=== PATIENT | male | born 1940 | race Caucasian/White ===

== ENCOUNTER 2016-11-08 03:15 | Observation (INO) | payer MEDICARE, OTHER ==
[2016-11-08] MEDS ORDERED: Aspirin 81 MG Tab.Chew PO ONE (03:25)
[2016-11-08] MEDS ORDERED: Sodium Chloride 0.9% 10 ML Syringe FLUSH PRN (03:26)
--- NOTE | 2016-11-08 03:31 | EDM.PDOC ---
ED HPI GENERAL MEDICAL PROBLEM - General Chief Complaint: Chest Pain Stated Complaint: Chest pressure, SOB Time Seen by Provider: 11/08/16 03:24 Source of Information: Reports: Patient, RN, RN Notes Reviewed History Limitations: Reports: No Limitations - History of Present Illness INITIAL COMMENTS - FREE TEXT/NARRATIVE: Patient presents to the ED at [facility] complaining of chest pressure. Patient states the pain started about 2 hours ago. Patient states his pain is worse when he lays down. Patient has a history of CABG, stents, and s/p pacer. Patient states he also feels somewhat SOB. No cough. Patient denies any N/V/D. No focal neurological deficits. 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 Onset: Today Onset Date: 11/08/16 Onset Time: 01:00 Duration: Waxing/Waning Location: Reports: Chest Quality: Reports: Pressure mid sternal chest Pain Score (Numeric/FACES): 2 - Related Data Allergies Allergy/AdvReac Type Severity Reaction Status Date / Time atorvastatin calcium Allergy Unknown Hives Verified 11/08/16 03:36 [From Lipitor] cephalexin monohydrate Allergy Unknown Cannot Verified 11/08/16 03:36 [From Keflex] Remember colesevelam HCl Allergy Unknown Cannot Verified 11/08/16 03:36 [From WelChol] Remember erythromycin base Allergy Unknown Cannot Verified 11/08/16 03:36 [Erythromycin Base] Remember gemfibrozil [From Lopid] Allergy Unknown Cannot Verified 11/08/16 03:36 Remember lisinopril Allergy Unknown Cannot Verified 11/08/16 03:36 Remember midazolam HCl [From Versed] AdvReac Unknown Change Verified 11/08/16 03:36 Mental Status Home Meds: Home Meds Aspirin [Halfprin] 81 mg PO DAILY 04/05/13 [History] Calcium Carbonate/Vitamin D3 [Calcium 600 + Vit D Tablet] 1 tab PO DAILY [History] Cholecalciferol (Vitamin D3) [Vitamin D3] 1 tab PO DAILY 04/05/13 [History] Cholestyramine (With Sugar) [Questran Powder] 4 gm PO DAILY 04/05/13 [History] Citric Acid/Potassium Citrate [Polycitra-K] 4 tbsp PO BID 04/05/13 [History] Cyanocobalamin (Vitamin B-12) [Vitamin B-12] 1 tab PO DAILY 04/05/13 [History] Cyclobenzaprine [Flexeril] 10 mg PO BEDTIME PRN 04/05/13 [History] Ferrous Sulfate 1 tab PO BID 04/05/13 [History] Furosemide [Lasix] 1 tab PO DAILY 04/05/13 [History] Gluc 2KCl/Chondr/Lissy Hy/Hy Ac [Glucosamine & Chondroitin Cap] 1 cap PO BID [History] Hydrocortisone Butyrate [Locoid 0.1% Crm] 1 dose TOP ASDIRECTED PRN 04/05/13 [ History] Metoprolol Tartrate 12.5 mg PO DAILY 04/05/13 [History] Multivitamin with Minerals [Multiple Vitamin] 1 tab PO DAILY 04/05/13 [History] Nitroglycerin [Nitrostat] 1 tab SL ASDIRECTED PRN 04/05/13 [History] Pantoprazole [ProTONIX] 40 mg PO DAILY 04/05/13 [History] Penicillin V Potassium 250 mg PO DAILY 04/05/13 [History] Pravastatin [Pravachol] 10 mg PO BEDTIME 04/05/13 [History] Allopurinol [Zyloprim] 100 mg PO DAILY 11/08/16 [History] Furosemide [Furosemide] 20 mg PO DAILY 11/08/16 [History] Past Medical History HEENT History: Reports: Cataract Other HEENT History: . Cardiovascular History: Reports: High Cholesterol, Hypertension Other Cardiovascular History: CABG and stents Other Respiratory History: tried CPAP and was unable to use Other Gastrointestinal History: ostomy in place Other Genitourinary History: . Musculoskeletal History: Reports: Arthritis Other Musculoskeletal History: . Hematologic History: Reports: Anemia, Other (See Below) Other Hematologic History: hx of low platelets. Immunologic History: 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 Oncologic (Cancer) History: Reports: Basal Cell Carcinoma - Past Surgical History Male Surgical History: Reports: Other (See Below) Musculoskeletal Surgical History: Reports: Arthroscopic Procedure Social & Family History - Tobacco Use Smoking Status *Q: Never Smoker Second Hand Smoke Exposure: No - Alcohol Use Days Per Week of Alcohol Use: 0 - Recreational Drug Use Recreational Drug Use: No ED ROS GENERAL - Review of Systems Review Of Systems: See Below Constitutional: Denies: Fever, Chills, Weakness Respiratory: Reports: Shortness of Breath. Denies: Cough, Sputum Cardiovascular: Reports: Chest Pain. Denies: Palpitations GI/Abdominal: Denies: Abdominal Pain, Nausea, Vomiting Skin: Reports: No Symptoms Neurological: Reports: No Symptoms. Denies: Dizziness, Headache ED EXAM, GENERAL - Physical Exam Exam: See Below Exam Limited By: No Limitations General Appearance: Alert, No Apparent Distress Respiratory/Chest: No Respiratory Distress, Lungs Clear, Normal Breath Sounds Cardiovascular: Normal Peripheral Pulses, Regular Rate, Rhythm, No Edema Peripheral Pulses: 2+: Radial (L), Radial (R) GI/Abdominal: Normal Bowel Sounds, Soft, Non-Tender Neurological: Alert, Oriented Skin Exam: Warm, Dry, Intact, Normal Color, No Rash Course - Vital Signs Last Recorded V/S: Last Vital Signs Temp 36.8 C 11/08/16 03:15 Pulse 73 11/08/16 04:35 Resp 16 11/08/16 04:35 BP 137/67 11/08/16 04:35 Pulse Ox 97 11/08/16 04:35 - Orders/Labs/Meds Orders: Active Orders 24 hr Category Date Time Status Admission Status [Patient Status] [ADT] Routine ADT 11/08/16 04:47 Ordered EKG 12 Lead [EKG Documentation Completion] [RC] STAT Care 11/08/16 03:25 Active Chest 2V [CR] Stat Exams 11/08/16 03:25 Taken Sodium Chloride 0.9% [Saline Flush] Med 11/08/16 03:26 Active 10 ml FLUSH ASDIRECTED PRN Peripheral IV Insertion Adult [OM.PC] Routine Oth 11/08/16 03:26 Ordered Medication Orders Sodium Chloride (Saline Flush) 10 ml FLUSH ASDIRECTED PRN PRN Reason: Keep Vein Open Labs: Laboratory Tests 11/08/16 11/08/16 11/08/16 Range/Units 03:49 03:49 03:49 WBC 6.7 (4.0-10.0) x10^3/uL RBC 3.02 L (4.5-6.0) x10^6/uL Hgb 9.0 L (14.0-18.0) g/dL Hct 30.7 L (40.0-52.0) % MCV 101.7 H (78.0-93.0) fL MCH 29.8 (26.0-32.0) pg MCHC 29.3 L (32.0-36.0) g/dL RDW Coeff of Diana 13.9 (10.0-15.0) % Plt Count 2 L* D (130-400) x10^3/uL Add Manual Diff Yes Neutrophils % (Manual) 54 (50-80) % Band Neutrophils % 1 (0-6) % Lymphocytes % (Manual) 21 L (25-50) % Monocytes % (Manual) 15 H (2-11) % Eosinophils % (Manual) 9 H (0-4) % Platelet Estimate Marked dec L Giant Platelets Moderate H Plt Morphology Comment See note Polychromasia Rare Anisocytosis 1+ slight H Macrocytosis 1+ slight H Spherocytes 1+ slight H Schistocytes Rare Sodium 142 (136-145) mmol/L Potassium 4.1 (3.5-5.1) mmol/L Chloride 108 H (98-107) mmol/L Carbon Dioxide 23 (21-32) mmol/L BUN 41 H (7-18) mg/dL Creatinine 2.1 H (0.70-1.30) mg/dL Est Cr Clr Drug Dosing TNP Estimated GFR (MDRD) 31 Glucose 79 (74-106) mg/dL Calcium 8.3 L (8.5-10.1) mg/dL Creatine Kinase 87 (39-308) U/L Creatine Kinase Index 4.4 H (0.0-4.0) % CK-MB (CK-2) 3.8 H (0.0-3.6) ng/mL POC Troponin I (0.00-0.08) ng/mL B-Natriuretic Peptide 2000 H (<=450) pg/mL POC Result Comm 11/08/16 Range/Units 03:53 WBC (4.0-10.0) x10^3/uL RBC (4.5-6.0) x10^6/uL Hgb (14.0-18.0) g/dL Hct (40.0-52.0) % MCV (78.0-93.0) fL MCH (26.0-32.0) pg MCHC (32.0-36.0) g/dL RDW Coeff of Diana (10.0-15.0) % Plt Count (130-400) x10^3/uL Add Manual Diff Neutrophils % (Manual) (50-80) % Band Neutrophils % (0-6) % Lymphocytes % (Manual) (25-50) % Monocytes % (Manual) (2-11) % Eosinophils % (Manual) (0-4) % Platelet Estimate Giant Platelets Plt Morphology Comment Polychromasia Anisocytosis Macrocytosis Spherocytes Schistocytes Sodium (136-145) mmol/L Potassium (3.5-5.1) mmol/L Chloride (98-107) mmol/L Carbon Dioxide (21-32) mmol/L BUN (7-18) mg/dL Creatinine (0.70-1.30) mg/dL Est Cr Clr Drug Dosing Estimated GFR (MDRD) Glucose (74-106) mg/dL Calcium (8.5-10.1) mg/dL Creatine Kinase (39-308) U/L Creatine Kinase Index (0.0-4.0) % CK-MB (CK-2) (0.0-3.6) ng/mL POC Troponin I 0.12 H* (0.00-0.08) ng/mL B-Natriuretic Peptide (<=450) pg/mL POC Result Comm Called critical res Meds: Medications Generic Name Dose Route Start Last Admin Trade Name Freq PRN Reason Stop Dose Admin Sodium Chloride 10 ml 11/08/16 03:26 Saline Flush FLUSH ASDIRECTED PRN Keep Vein Open Discontinued Medications Generic Name Dose Route Start Last Admin Trade Name Freq PRN Reason Stop Dose Admin Aspirin 324 mg 11/08/16 03:25 11/08/16 03:28 Aspirin PO 11/08/16 03:26 324 mg ONETIME ONE Administration Departure - Departure Time of Disposition: 04:49 Disposition: Refer to Observation Condition: Good Clinical Impression: Congestive heart failure, Elevated troponin, CAD (coronary artery disease), Anemia - Problem List & Annotations (1) Congestive heart failure SNOMED Code(s): 66212196 Code(s): I50.9 - HEART FAILURE, UNSPECIFIED Status: Acute Current Visit: Yes Qualifiers: Congestive heart failure type: unspecified congestive heart failure type Congestive heart failure chronicity: unspecified congestive heart failure chronicity Qualified Code(s): I50.9 - Heart failure, unspecified (2) Elevated troponin SNOMED Code(s): 072376746, 695144437 Code(s): R74.8 - ABNORMAL LEVELS OF OTHER SERUM ENZYMES Status: Acute Current Visit: Yes (3) CAD (coronary artery disease) SNOMED Code(s): 71045363 Code(s): I25.10 - ATHSCL HEART DISEASE OF [place] CORONARY ARTERY W/O ANG PCTRS Status: Acute Current Visit: No Qualifiers: Coronary Disease-Associated Artery/Lesion type: bypass graft, other Associated angina: without angina Qualified Code(s): I25.810 - Atherosclerosis of coronary artery bypass graft(s) without angina pectoris (4) Anemia SNOMED Code(s): 710568880 Code(s): D64.9 - ANEMIA, UNSPECIFIED Status: Acute Current Visit: No Qualifiers: Chronic kidney disease stage: stage 3 (moderate) - Problem List Review Problem List Initiated/Reviewed/Updated: Yes - My Orders Last 24 Hours: My Active Orders 11/08/16 03:25 EKG 12 Lead [EKG Documentation Completion] [RC] STAT Chest 2V [CR] Stat 11/08/16 03:26 Sodium Chloride 0.9% [Saline Flush] 10 ml FLUSH ASDIRECTED PRN Peripheral IV Insertion Adult [OM.PC] Routine 11/08/16 04:47 Admission Status [Patient Status] [ADT] Routine - Assessment/Plan Admission H&P: Please use this note as an admission H&P Last 24 Hours: My Active Orders 11/08/16 03:25 EKG 12 Lead [EKG Documentation Completion] [RC] STAT Chest 2V [CR] Stat 11/08/16 03:26 Sodium Chloride 0.9% [Saline Flush] 10 ml FLUSH ASDIRECTED PRN Peripheral IV Insertion Adult [OM.PC] Routine 11/08/16 04:47 Admission Status [Patient Status] [ADT] Routine
[2016-11-08 04:25] LABS: CHLORIDE,CL 108 mmol/L (98-107); SODIUM,NA 142 mmol/L (136-145)
[2016-11-08] MEDS ORDERED: Morphine 2 MG/ML Syringe IVPUSH PRN (05:09)
[2016-11-08] MEDS ORDERED: Acetaminophen 325 MG Tab PO PRN (05:09)
[2016-11-08] MEDS ORDERED: Furosemide 20 MG/2 ML VIAL IV ONE (05:14)
[2016-11-08] MEDS ORDERED: Nitroglycerin 0.4 MG Tab.SL SL PRN (05:14)
[2016-11-08] MEDS ORDERED: Pantoprazole 40 MG Tab.CR PO SCH (07:00)
[2016-11-08] MEDS ORDERED: POTASSIUM CITRATE PO SCH (08:00)
[2016-11-08] MEDS ORDERED: Allopurinol 100 MG Tab PO SCH (08:00)
[2016-11-08] MEDS ORDERED: CITRIC ACID PO SCH (08:00)
[2016-11-08] MEDS ORDERED: Metoprolol Tartrate 25 MG Tab PO SCH (08:00)
[2016-11-08] MEDS ORDERED: Ferrous Sulfate 325 MG Tab PO SCH (08:00)
[2016-11-08] MEDS ORDERED: Cholestyramine/Aspartame Powder 4 GM Packet PO SCH (08:00)
[2016-11-08 09:48] VITALS: BP 156/70
--- NOTE | 2016-11-08 09:57 | PCM.DCSUM1 ---
Discharge Summary - Hospital Course Free Text/Narrative:: Patient admitted last night with chest pressure and a positive troponin, elevated BNP. Chronic troponin elevation. He was admitted to trend his troponin. His troponin at 0700 was elevated again, prompting a call to for transfer for further work up. HPI Initial Comments: Presented to ER with chest pressure. He had some chest pressure at 0100, he did take some Excedrin which resolved the pain. He did have it again at 0300, prompting him to present to the ED. Currently chest pain free. - Discharge Data Discharge Date: 11/08/16 Discharge Disposition: DC/Tfer to Acute Hospital 02 Condition: Good - Patient Summary/Data Consults: Consultations 11/08/16 05:08 Consult to Cardiac Rehabilitation [CONS] Routine - Patient Instructions Diet: NPO Fluid Restriction: 2000 mL Activity: Bedrest, May Use Bathroom - Discharge Plan Home Medications: Home Meds Aspirin [Halfprin] 81 mg PO DAILY 04/05/13 [History] Calcium Carbonate/Vitamin D3 [Calcium 600 + Vit D Tablet] 1 tab PO DAILY [History] Cholecalciferol (Vitamin D3) [Vitamin D3] 1 tab PO DAILY 04/05/13 [History] Cholestyramine (With Sugar) [Questran Powder] 4 gm PO DAILY 04/05/13 [History] Citric Acid/Potassium Citrate [Polycitra-K] 4 tbsp PO BID 04/05/13 [History] Cyanocobalamin (Vitamin B-12) [Vitamin B-12] 1 tab PO DAILY 04/05/13 [History] Cyclobenzaprine [Flexeril] 10 mg PO BEDTIME PRN 04/05/13 [History] Ferrous Sulfate 1 tab PO BID 04/05/13 [History] Gluc 2KCl/Chondr/Lissy Hy/Hy Ac [Glucosamine & Chondroitin Cap] 1 cap PO BID [History] Hydrocortisone Butyrate [Locoid 0.1% Crm] 1 dose TOP ASDIRECTED PRN 04/05/13 [ History] Metoprolol Tartrate 12.5 mg PO DAILY 04/05/13 [History] Multivitamin with Minerals [Multiple Vitamin] 1 tab PO DAILY 04/05/13 [History] Nitroglycerin [Nitrostat] 1 tab SL ASDIRECTED PRN 04/05/13 [History] Pantoprazole [ProTONIX] 40 mg PO DAILY 04/05/13 [History] Penicillin V Potassium 250 mg PO DAILY 04/05/13 [History] Pravastatin [Pravachol] 10 mg PO BEDTIME 04/05/13 [History] Allopurinol [Zyloprim] 100 mg PO DAILY 11/08/16 [History] Furosemide [Furosemide] 20 mg PO DAILY 11/08/16 [History] Forms: Interfacility Transfer EMTALA Referrals: PCP,Unobtain [Ordering Only Provider] - - Discharge Summary/Plan Comment DC Time >30 min.: Yes Discharge Summary/Plan Comment: Transfer to [facility]. Hospitalist Dr. Tran did accept care. Discussed case with Dr. Chávez in cardiology regarding whether or not to start Heparin. They did advise no aspirin or Heparin due to his platelet level of 2. - Patient Data Vitals - Most Recent: Last Vital Signs Temp 36.6 C 11/08/16 09:48 Pulse 73 11/08/16 09:48 Resp 16 11/08/16 09:48 BP 156/70 H 11/08/16 09:48 Pulse Ox 99 11/08/16 09:48 Weight - Most Recent: 74.897 kg I&O - Last 24 hours: Intake & Output 11/07/16 11/08/16 11/08/16 22:59 06:59 14:59 Intake Total 120 Output Total 1300 Balance -1180 Lab Results - Last 24 hrs: Laboratory Results - last 24 hr 11/08/16 Range/Units 06:54 Creatine Kinase 78 (39-308) U/L Creatine Kinase Index 4.7 H (0.0-4.0) % CK-MB (CK-2) 3.7 H (0.0-3.6) ng/mL Troponin I 0.218 H* (<=0.056) ng/mL Med Orders - Current: Current Medications Acetaminophen (Tylenol) 650 mg PO Q4H PRN PRN Reason: Pain (Mild 1-3)/fever Allopurinol (Zyloprim) 100 mg PO DAILY [facility] Last Admin: 11/08/16 07:22 Dose: 100 mg Aspirin (Halfprin) 81 mg PO DAILY [facility] Cholestyramine Resin (Prevalite Packet) 4 gm PO DAILY [facility] Last Admin: 11/08/16 07:22 Dose: 4 gm Ferrous Sulfate (Ferrous Sulfate) 325 mg PO BID [facility] Last Admin: 11/08/16 07:22 Dose: 325 mg Metoprolol Tartrate (Lopressor) 12.5 mg PO DAILY [facility] Last Admin: 11/08/16 07:22 Dose: 12.5 mg Morphine Sulfate (Morphine) 2 mg IVPUSH Q2H PRN PRN Reason: Chest Pain Nitroglycerin (Nitrostat) 0.4 mg SL ASDIRECTED PRN PRN Reason: Chest Pain Pantoprazole Sodium (Protonix) 40 mg PO ACBREAKFAST [facility] Last Admin: 11/08/16 06:16 Dose: 40 mg Simvastatin (Zocor) 5 mg PO BEDTIME [facility] Sodium Chloride (Saline Flush) 10 ml FLUSH ASDIRECTED PRN PRN Reason: Keep Vein Open Discontinued Medications Aspirin (Aspirin) 324 mg PO ONETIME ONE Stop: 11/08/16 03:26 Last Admin: 11/08/16 03:28 Dose: 324 mg Furosemide (Lasix) 20 mg IV ONETIME ONE Stop: 11/08/16 05:15 Last Admin: 11/08/16 06:16 Dose: 20 mg Non-Formulary Medication (Citric Acid/Potassium Citrate [Polycitra-K]) 4 tbsp PO BID [facility] Last Admin: 11/08/16 08:29 Dose: Not Given *Q Meaningful Use (DIS) - VTE *Q VTE Criteria *Q: - Stroke *Q Stroke Criteria *Q: - AMI *Q AMI Criteria *Q:
[2016-11-08] MEDS ORDERED: Simvastatin 10 MG Tab PO SCH (20:00)
[2016-11-09] MEDS ORDERED: Aspirin 81 MG Tab.EC PO SCH (08:00)
== END 2016-11-08 10:05 | disposition short-term general hospital (02) ==
LOC: VM.ED 03:15 → VM.MS 04:47
PROVIDERS: ADMIT Nurse Practitioner Family; ATTEND Nurse Practitioner Family
DX: R07.89 Other chest pain (principal); R79.89 Other specified abnormal findings of blood chemistry; R74.8 Abnormal levels of other serum enzymes; I11.0 Hypertensive heart disease with heart failure; I50.9 Heart failure, unspecified; E78.00 Pure hypercholesterolemia, unspecified; D64.9 Anemia, unspecified; M19.90 Unspecified osteoarthritis, unspecified site; Z95.1 Presence of aortocoronary bypass graft; Z95.5 Presence of coronary angioplasty implant and graft; Z79.82 Long term (current) use of aspirin; Z79.899 Other long term (current) drug therapy; Z98.890 Other specified postprocedural states
CPT/HCPCS: 36415; 71020; 80048; 82550; 82553; 83880; 84484; 85025; 93005; 96374; 99285; A9270; G0378; J1940; 99236

== ENCOUNTER 2016-12-22 10:00 | Observation (INO) | payer MEDICARE, OTHER ==
[2016-12-22] MEDS ORDERED: Sodium Chloride 0.9% 10 ML Syringe FLUSH PRN (10:24)
[2016-12-22] MEDS ORDERED: Furosemide 40 MG/4 ML VIAL IV ONE (10:28)
[2016-12-22] MEDS ORDERED: Cyclobenzaprine 10 MG Tab PO PRN (13:06)
[2016-12-22] MEDS ORDERED: Nitroglycerin 0.4 MG Tab.SL SL PRN (13:06)
--- NOTE | 2016-12-22 15:50 | ER ---
Date of Service: 12/22/2016 SUBJECTIVE: Basil presents to the emergency room with complaints of dyspnea. He states that he has been experiencing this for several days. He does have an extensive history including coronary artery disease, CHF, and chronic kidney disease. He also does have a history of anemia. He states that recently he has noticed some mild increase in the swelling of his ankles. He states he is not experiencing any significant chest pain. He was transferred to [facility] in [place] in October with [id number] when one of the stents in his right coronary artery restenosed requiring re-stenting. The patient does also have an ileostomy and was having some discomfort due to hard stool approximately 2 days ago. He states that has resolved. He states he has not been experiencing any bleeding out of his ostomy. PAST MEDICAL HISTORY: 1. Coronary artery disease. 2. Congestive heart failure. 3. Chronically elevated troponin. 4. Stage 3 chronic kidney disease. 5. Anemia. 6. Thrombocytopenia. 7. History of CABG. 8. History of PTCA and 6 stents. 9. Crohn disease. 10.Hyperlipidemia. PAST SURGICAL HISTORY: 1. Status post splenectomy. 2. Ileostomy. 3. Status post nephrectomy. 4. CABG. ALLERGIES: 1. Atorvastatin. 2. Cephalexin. 3. Welchol. 4. Erythromycin. 5. Lopid. 6. Lisinopril. 7. Versed. MEDICATIONS: Please see SALEEM. REVIEW OF SYSTEMS: General: No fever or chills. HEENT: No sore throat, rhinorrhea, or congestion. Respiratory: Complains of moderate shortness of breath. Cardiac: Denies any substernal chest pain. GI: No nausea, vomiting, or diarrhea. Did have some abdominal discomfort several nights ago. Denies any melena, hematochezia, or hematemesis. : Denies any dysuria. Musculoskeletal: No myalgias or arthralgias. Neurologic: No fainting, blackouts, or lightheadedness. PHYSICAL EXAMINATION: General: This is a 76-year-old male patient, in no acute distress. Vital Signs: Blood pressure is 151/59, pulse rate 64, temperature is 36.3, respiratory rate 16, O2 saturations 100%. Skin: Warm, pink, and dry. HEENT: Head is normocephalic, atraumatic. Eyes: PERRLA. Extraocular intact. Mouth: Oral mucosa is moist. Lungs: Clear to auscultation. Does have some crackles at the bases. Heart: Regular rate and rhythm. Abdomen: Soft, nontender. There is no hepatosplenomegaly or masses noted. Extremities: Without edema. Neurologic: He is alert and oriented answers all questions appropriately. His speech is fluent. His gait is within normal limits. DIAGNOSTIC DATA: EKG was obtained showing a paced rhythm at approximately 60. LABORATORY DATA: WBC is 5.9, hemoglobin is 9.8, and platelet count is 1. He did have 1+ target cells, 1+ spherocytes, 2+ macrocytosis, and 1+ anisocytosis. I did send for a peripheral blood smear. Coag: PT is 10.5, INR is 1.0. Chemistry: Sodium is 140, potassium is 3.7, chloride is 107, bicarb is 26, BUN is 32, creatinine is 2.0 creatinine clearance is 31.75, GFR is 33, glucose is 134, calcium is 8.4, corrected calcium is 9.36, total bilirubin 0.4, AST is 48, ALT is 55, alkaline phosphatase is 105. CK is 187, CK-MB is 4.6, troponin 0.124, proBNP is 2245, total protein is 6.4, albumin is 4.8. A 2-view chest x-ray was obtained. He did have evidence of minimal bilateral pleural effusions and COPD. EMERGENCY ROOM COURSE: IV access was established. He was given 40 a Lasix IV. He did report improvement in his dyspnea. He remained stable at my care in the emergency room. ASSESSMENT: 1. Dyspnea secondary to congestive heart failure. 2. Positive troponin. PLAN: The patient will be admitted on observation status. I did speak with Cecily Bonner regarding this patient and also consulted with [facility] who advised admitting the patient and trending his troponin. Again, he is not experiencing any significant chest discomfort and he states that his dyspnea has improved. The patient is a code level 2. If his troponin increases significantly, anticipate transfer to [facility]. If not, anticipate discharge once his troponin is trending downward. All questions were answered. MWK: 12/22/2016 12:52:14 MODL: 12/22/2016 14:06:26 /[id number]
[2016-12-22] MEDS: Ferrous Sulfate 325 MG Tab PO SCH (17:14)
[2016-12-22] MEDS ORDERED: Simvastatin 10 MG Tab PO SCH (20:00)
[2016-12-22] MEDS: Calcium Carbonate/Vitamin D3 1250 MG-200 Unit Tab PO SCH (20:22)
[2016-12-22] MEDS: Citric Acid/Sodium Citrate Solution 30 ML Cup PO SCH (20:24)
[2016-12-22] MEDS: Clobetasol 0.05% Crm 30 GM Tube TOP SCH (20:24)
[2016-12-22] MEDS: [UNRECOGNIZED DRUG - OTHER] PO SCH (20:26)
[2016-12-22] MEDS: Furosemide 20 MG/2 ML VIAL IV SCH (20:52)
[2016-12-23] MEDS: Clobetasol 0.05% Crm 30 GM Tube TOP SCH (07:41)
[2016-12-23] MEDS: Ferrous Sulfate 325 MG Tab PO SCH (07:41)
[2016-12-23] MEDS: Calcium Carbonate/Vitamin D3 1250 MG-200 Unit Tab PO SCH (07:41)
[2016-12-23] MEDS: Citric Acid/Sodium Citrate Solution 30 ML Cup PO SCH (07:41)
[2016-12-23] MEDS: Furosemide 20 MG/2 ML VIAL IV SCH (07:42)
[2016-12-23] MEDS: [UNRECOGNIZED DRUG - OTHER] PO SCH (07:42)
[2016-12-23] MEDS ORDERED: Clopidogrel 75 MG Tab PO SCH (08:00)
[2016-12-23] MEDS ORDERED: Cyanocobalamin (Vitamin B12) 1,000 MCG Tab PO SCH (08:00)
[2016-12-23] MEDS ORDERED: Aspirin 81 MG Tab.EC PO SCH (08:00)
[2016-12-23] MEDS ORDERED: Isosorbide Mononitrate 30 MG Tab.ER PO SCH (08:00)
[2016-12-23] MEDS ORDERED: Cholestyramine/Aspartame Powder 4 GM Packet PO SCH (08:00)
[2016-12-23] MEDS ORDERED: Cholecalciferol (Vitamin D3) 1,000 Unit Tab PO SCH (08:00)
[2016-12-23] MEDS ORDERED: Pantoprazole 40 MG Tab.CR PO SCH (08:00)
[2016-12-23] MEDS ORDERED: Metoprolol Succinate 25 MG Tab.ER PO SCH (08:00)
[2016-12-23] MEDS ORDERED: Allopurinol 100 MG Tab PO SCH (08:00)
[2016-12-23] MEDS ORDERED: Multivitamins with Iron/Calcium/Folic Acid/Minerals Tab PO SCH (08:00)
[2016-12-23] MEDS ORDERED: Penicillin V Potassium 500 MG Tab PO SCH (08:00)
--- NOTE | 2016-12-23 08:13 | PCM.PN ---
- General Info Date of Service: 12/23/16 Admission Dx/Problem (Free Text): Admission for CHF and elevated troponin. Trending troponins. Functional Status: Reports: Pain Controlled - Review of Systems General: Reports: No Symptoms HEENT: Reports: No Symptoms Pulmonary: Reports: Shortness of Breath (better than yesterday) Cardiovascular: Reports: No Symptoms Gastrointestinal: Reports: No Symptoms Genitourinary: Reports: No Symptoms Musculoskeletal: Reports: No Symptoms Skin: Reports: No Symptoms Neurological: Reports: No Symptoms Psychiatric: Reports: No Symptoms - Patient Data Vitals - Most Recent: Last Vital Signs Temp 36.7 C 12/23/16 06:00 Pulse 64 12/23/16 07:43 Resp 18 12/23/16 06:00 BP 151/59 H 12/23/16 07:43 Pulse Ox 98 12/23/16 06:00 Weight - Most Recent: 74.072 kg I&O - Last 24 Hours: Intake & Output 12/22/16 12/23/16 12/23/16 22:59 06:59 14:59 Output Total 925 650 Balance -925 -650 Lab Results Last 24 Hours: Laboratory Results - last 24 hr 12/22/16 12/22/16 12/23/16 Range/Units 16:10 19:05 06:27 WBC 6.7 (4.0-10.0) x10^3/uL RBC 3.78 L (4.5-6.0) x10^6/uL Hgb 10.9 L (14.0-18.0) g/dL Hct 37.4 L (40.0-52.0) % MCV 98.9 H (78.0-93.0) fL MCH 28.8 (26.0-32.0) pg MCHC 29.1 L (32.0-36.0) g/dL RDW Coeff of Diana 13.5 (10.0-15.0) % Plt Count 4 L* (130-400) x10^3/uL Add Manual Diff Yes Neutrophils % (Manual) 66 (50-80) % Lymphocytes % (Manual) 10 L (25-50) % Monocytes % (Manual) 17 H (2-11) % Eosinophils % (Manual) 7 H (0-4) % Platelet Estimate Marked dec L Giant Platelets Moderate H Sodium (136-145) mmol/L Potassium (3.5-5.1) mmol/L Chloride (98-107) mmol/L Carbon Dioxide (21-32) mmol/L BUN (7-18) mg/dL Creatinine (0.70-1.30) mg/dL Est Cr Clr Drug Dosing mL/min Estimated GFR (MDRD) Glucose (74-106) mg/dL Calcium (8.5-10.1) mg/dL Corrected Calcium (8.5-10.1) mg/dL Total Bilirubin (0.2-1.0) mg/dL AST (15-37) U/L ALT (16-63) U/L Alkaline Phosphatase (46-116) U/L Creatine Kinase (39-308) U/L Creatine Kinase Index (0.0-4.0) % CK-MB (CK-2) (0.0-3.6) ng/mL Troponin I 0.168 H* 0.176 H* (<=0.056) ng/mL Total Protein (6.4-8.2) g/dL Albumin (3.4-5.0) g/dL Globulin Albumin/Globulin Ratio 12/23/ Range/Units 06:27 WBC (4.0-10.0) x10^3/uL RBC (4.5-6.0) x10^6/uL Hgb (14.0-18.0) g/dL Hct (40.0-52.0) % MCV (78.0-93.0) fL MCH (26.0-32.0) pg MCHC (32.0-36.0) g/dL RDW Coeff of Diana (10.0-15.0) % Plt Count (130-400) x10^3/uL Add Manual Diff Neutrophils % (Manual) (50-80) % Lymphocytes % (Manual) (25-50) % Monocytes % (Manual) (2-11) % Eosinophils % (Manual) (0-4) % Platelet Estimate Giant Platelets Sodium 146 H (136-145) mmol/L Potassium 3.2 L (3.5-5.1) mmol/L Chloride 107 (98-107) mmol/L Carbon Dioxide 34 H (21-32) mmol/L BUN 32 H (7-18) mg/dL Creatinine 1.8 H (0.70-1.30) mg/dL Est Cr Clr Drug Dosing 35.49 mL/min Estimated GFR (MDRD) 37 Glucose 96 (74-106) mg/dL Calcium 8.3 L (8.5-10.1) mg/dL Corrected Calcium 9.18 (8.5-10.1) mg/dL Total Bilirubin 0.6 (0.2-1.0) mg/dL AST 54 H (15-37) U/L ALT 61 (16-63) U/L Alkaline Phosphatase 106 (46-116) U/L Creatine Kinase 111 (39-308) U/L Creatine Kinase Index 2.3 (0.0-4.0) % CK-MB (CK-2) 2.6 (0.0-3.6) ng/mL Troponin I 0.220 H* (<=0.056) ng/mL Total Protein 6.7 (6.4-8.2) g/dL Albumin 2.9 L (3.4-5.0) g/dL Globulin 3.8 Albumin/Globulin Ratio 0.76 Wade Results Last 24 Hours: Microbiology 12/22/16 12:40 MRSA Surveillance Culture - Final Nares, Unspecified NO MRSA ISOLATED Med Orders - Current: Current Medications Allopurinol (Zyloprim) 100 mg PO DAILY [facility] Last Admin: 12/23/16 07:43 Dose: 100 mg Aspirin (Halfprin) 81 mg PO DAILY [facility] Last Admin: 12/23/16 07:42 Dose: 81 mg Calcium Carbonate (Calcium Carbonate/Vitamin D 1250 Mg-200 Unit) 1 tab PO BID [facility] Last Admin: 12/23/16 07:41 Dose: Not Given Cholecalciferol (Vitamin D3) 1,000 units PO DAILY [facility] Last Admin: 12/23/16 07:43 Dose: Not Given Cholestyramine Resin (Prevalite Packet) 4 gm PO DAILY [facility] Last Admin: 12/23/16 07:42 Dose: Not Given Citric Acid/Sodium Citrate (Bicitra Solution) 60 ml PO BID [facility] Last Admin: 12/23/16 07:41 Dose: 60 ml Clobetasol Propionate (Clobetasol 0.05%) 0 gm TOP BID [facility] Last Admin: 12/23/16 07:41 Dose: Not Given Clopidogrel Bisulfate (Plavix) 75 mg PO DAILY [facility] Last Admin: 12/23/16 07:42 Dose: 75 mg Cyanocobalamin (Vitamin B12) 1,000 mcg PO DAILY [facility] Last Admin: 12/23/16 07:43 Dose: Not Given Cyclobenzaprine HCl (Flexeril) 10 mg PO BEDTIME PRN PRN Reason: Muscle Spasm Ferrous Sulfate (Ferrous Sulfate) 325 mg PO BIDMEALS [facility] Last Admin: 12/23/16 07:41 Dose: Not Given Furosemide (Lasix) 20 mg IV DAILY [facility] Last Admin: 12/23/16 07:42 Dose: 20 mg Isosorbide Mononitrate (Imdur) 30 mg PO DAILY [facility] Last Admin: 12/23/16 07:42 Dose: 30 mg Metoprolol Succinate (Toprol Xl) 25 mg PO DAILY [facility] Last Admin: 12/23/16 07:43 Dose: 25 mg Multivitamins/Minerals (Thera M Plus) 1 tab PO DAILY [facility] Last Admin: 12/23/16 07:43 Dose: Not Given Nitroglycerin (Nitrostat) 0.4 mg SL ASDIRECTED PRN PRN Reason: Chest Pain Gluc 2kcl/Chondr/Lissy Hy/Hy Ac ( Glucosamine & Chondroitin)Own Med 1 cap PO BID [facility] Last Admin: 12/23/16 07:42 Dose: Not Given Pantoprazole Sodium (Protonix) 40 mg PO DAILY [facility] Last Admin: 12/23/16 07:42 Dose: Not Given Penicillin V Potassium (Veetids) 250 mg PO DAILY [facility] Last Admin: 12/23/16 07:43 Dose: 250 mg Simvastatin (Zocor) 5 mg PO BEDTIME [facility] Last Admin: 12/22/16 20:23 Dose: 5 mg Sodium Chloride (Saline Flush) 10 ml FLUSH ASDIRECTED PRN PRN Reason: Keep Vein Open Last Admin: 12/22/16 21:00 Dose: 10 ml Discontinued Medications Furosemide (Lasix) 40 mg IV ONETIME ONE Stop: 12/22/16 10:29 Last Admin: 12/22/16 10:44 Dose: 40 mg - Exam General: Alert, Oriented, Cooperative, No Acute Distress HEENT: Pupils Equal, Pupils Reactive Neck: Supple Lungs: Crackles (bibasilar) Cardiovascular: Regular Rate, Regular Rhythm GI/Abdominal Exam: Normal Bowel Sounds, Soft, Non-Tender, No Organomegaly, Other (ileostomy to right lower quadrant) Back Exam: Normal Inspection Extremities: Normal Inspection, Normal Range of Motion, Non-Tender, Pedal Edema (1-2+ bilateral) Peripheral Pulses: 2+: Posterior Tibial (L), Posterior Tibial (R), Dorsalis Pedis (L), Dorsalis Pedis (R) Skin: Warm, Dry, Intact Neurological: No New Focal Deficit Psy/Mental Status: Alert, Normal Affect, Normal Mood - Problem List & Annotations (1) CAD (coronary artery disease) SNOMED Code(s): 92967205 Code(s): I25.10 - ATHSCL HEART DISEASE OF [place] CORONARY ARTERY W/O ANG PCTRS Status: Acute Priority: Medium Current Visit: No Qualifiers: Coronary Disease-Associated Artery/Lesion type: unspecified vessel or lesion type [place] vs. transplanted heart: [place] heart Associated angina: without angina Qualified Code(s): I25.10 - Atherosclerotic heart disease of [place] coronary artery without angina pectoris (2) Congestive heart failure SNOMED Code(s): 96057994 Code(s): I50.9 - HEART FAILURE, UNSPECIFIED Status: Acute Priority: Medium Current Visit: No Qualifiers: Congestive heart failure type: unspecified congestive heart failure type Congestive heart failure chronicity: acute on chronic Qualified Code(s): I50.9 - Heart failure, unspecified (3) Elevated troponin SNOMED Code(s): 589632328, 371954751 Code(s): R74.8 - ABNORMAL LEVELS OF OTHER SERUM ENZYMES Status: Acute Priority: Medium Current Visit: No (4) Chronic kidney disease (CKD) SNOMED Code(s): 361822817 Code(s): N18.9 - CHRONIC KIDNEY DISEASE, UNSPECIFIED Status: Chronic Current Visit: No Qualifiers: Chronic kidney disease stage: stage 3 (moderate) Qualified Code(s): N18.3 - Chronic kidney disease, stage 3 (moderate) - Problem List Review Problem List Initiated/Reviewed/Updated: Yes - My Orders Last 24 Hours: My Active Orders 12/23/16 08:02 EKG Documentation Completion [RC] ROUTINE - Assessment Assessment:: CHF Elevated troponin CAD Chronic renal failure Stage 3 - Plan Plan:: Discussed with patient's PCP Dr. Cecily Bonner, as well as with [facility] from [place] Dr. Moya. Due to trending upwards troponin levels, and the patient's significant history of CAD, and in stent restenosis, he will be transferred to their facility when a bed is available.
[2016-12-23] MEDS ORDERED: Potassium Chloride 10 MEQ Tab.ER PO SCH (08:30)
[2016-12-23] MEDS ORDERED: D5 1/2 NS w/ 40 mEq/L KCl 1,000 ML IV SCH (08:30)
[2016-12-23 09:12] VITALS: BP 134/50
--- NOTE | 2016-12-23 10:20 | PCM.DCSUM1 ---
Discharge Summary - Hospital Course Brief History: Patient admitted yesterday with dyspnea, elevated troponin. Consultation with cardiology at [facility] by Albert Watson with recommendation to trend troponin and send today if still positive and trending upwards. - Discharge Data Discharge Date: 12/23/16 Discharge Disposition: DC/Tfer to Acute Hospital 02 Condition: Good - Discharge Diagnosis/Problem(s) (1) CAD (coronary artery disease) SNOMED Code(s): 65603721 ICD Code: I25.10 - ATHSCL HEART DISEASE OF [place] CORONARY ARTERY W/O ANG PCTRS Status: Acute Priority: Medium Current Visit: No Qualifiers: Coronary Disease-Associated Artery/Lesion type: unspecified vessel or lesion type [place] vs. transplanted heart: [place] heart Associated angina: without angina Qualified Code(s): I25.10 - Atherosclerotic heart disease of [place] coronary artery without angina pectoris (2) Congestive heart failure SNOMED Code(s): 75552563 ICD Code: I50.9 - HEART FAILURE, UNSPECIFIED Status: Acute Priority: Medium Current Visit: No Qualifiers: Congestive heart failure type: unspecified congestive heart failure type Congestive heart failure chronicity: acute on chronic Qualified Code(s): I50.9 - Heart failure, unspecified (3) Elevated troponin SNOMED Code(s): 221219705, 218587187 ICD Code: R74.8 - ABNORMAL LEVELS OF OTHER SERUM ENZYMES Status: Acute Priority: Medium Current Visit: No (4) Chronic kidney disease (CKD) SNOMED Code(s): 583265287 ICD Code: N18.9 - CHRONIC KIDNEY DISEASE, UNSPECIFIED Status: Chronic Current Visit: No Qualifiers: Chronic kidney disease stage: stage 3 (moderate) Qualified Code(s): N18.3 - Chronic kidney disease, stage 3 (moderate) - Discharge Plan Home Medications: Home Meds Aspirin [Halfprin] 81 mg PO DAILY 04/05/13 [History] Calcium Carbonate/Vitamin D3 [Calcium 600 + Vit D Tablet] 1 tab PO BID 04/05/13 [History] Cholecalciferol (Vitamin D3) [Vitamin D3] 1,000 unit PO DAILY 04/05/13 [History] Cyanocobalamin (Vitamin B-12) [Vitamin B-12] 1,000 mcg PO DAILY 04/05/13 [ History] Cyclobenzaprine [Flexeril] 10 mg PO BEDTIME PRN 04/05/13 [History] Gluc 2KCl/Chondr/Lissy Hy/Hy Ac [Glucosamine & Chondroitin Cap] 1 cap PO BID [History] Multivitamin with Minerals [Multiple Vitamin] 1 tab PO DAILY 04/05/13 [History] Nitroglycerin [Nitrostat] 1 tab SL ASDIRECTED PRN 04/05/13 [History] Pantoprazole [ProTONIX] 40 mg PO DAILY 04/05/13 [History] Penicillin V Potassium 250 mg PO DAILY 04/05/13 [History] Pravastatin [Pravachol] 10 mg PO BEDTIME 04/05/13 [History] Allopurinol [Zyloprim] 100 mg PO DAILY 11/08/16 [History] Furosemide [Furosemide] 20 mg PO DAILY 11/08/16 [History] Acetaminophen/Diphenhydramine [Tylenol Pm Ex-Strength Caplet] 2 tab PO BEDTIME PRN 12/22/16 [History] Cholestyramine/Aspartame [Prevalite Powder] 4 gram PO DAILY 12/22/16 [History] Citric Acid/Sodium Citrate [Bicitra Solution] 4 tbsp PO BID 12/22/16 [History] Clobetasol [Clobetasol Propionate 0.05%] 1 applic TOP BID 12/22/16 [History] Clopidogrel [Plavix] 75 mg PO DAILY 12/22/16 [History] Ferrous Sulfate 325 mg PO BID 12/22/16 [History] Fluticasone Propionate [Flonase] 1 spray NASBOTH BID 12/22/16 [History] Isosorbide Mononitrate [Isosorbide Mononitrate ER] 30 mg PO DAILY 12/22/16 [ History] Metoprolol Succinate [Toprol XL] 25 mg PO DAILY 12/22/16 [History] Forms: ED Department Discharge, Interfacility Transfer EMTALA Referrals: Cecily Bonner DO [Primary Care Provider] - - Discharge Summary/Plan Comment DC Time >30 min.: Yes - General Info Date of Service: 12/23/16 (please see progress note) - Patient Data Vitals - Most Recent: Last Vital Signs Temp 36.9 C 12/23/16 09:11 Pulse 64 12/23/16 09:11 Resp 16 12/23/16 09:11 BP 134/50 L 12/23/16 09:11 Pulse Ox 100 12/23/16 09:11 Weight - Most Recent: 74.072 kg I&O - Last 24 hours: Intake & Output 12/22/16 12/23/16 12/23/16 22:59 06:59 14:59 Intake Total 360 Output Total 929 255 Balance -925 -650 360 Lab Results - Last 24 hrs: Laboratory Results - last 24 hr 12/22/16 12/22/16 12/23/16 Range/Units 16:10 19:05 06:27 WBC 6.7 (4.0-10.0) x10^3/uL RBC 3.78 L (4.5-6.0) x10^6/uL Hgb 10.9 L (14.0-18.0) g/dL Hct 37.4 L (40.0-52.0) % MCV 98.9 H (78.0-93.0) fL MCH 28.8 (26.0-32.0) pg MCHC 29.1 L (32.0-36.0) g/dL RDW Coeff of Diana 13.5 (10.0-15.0) % Plt Count 4 L* (130-400) x10^3/uL Add Manual Diff Yes Neutrophils % (Manual) 66 (50-80) % Lymphocytes % (Manual) 10 L (25-50) % Monocytes % (Manual) 17 H (2-11) % Eosinophils % (Manual) 7 H (0-4) % Platelet Estimate Marked dec L Giant Platelets Moderate H Sodium (136-145) mmol/L Potassium (3.5-5.1) mmol/L Chloride (98-107) mmol/L Carbon Dioxide (21-32) mmol/L BUN (7-18) mg/dL Creatinine (0.70-1.30) mg/dL Est Cr Clr Drug Dosing mL/min Estimated GFR (MDRD) Glucose (74-106) mg/dL Calcium (8.5-10.1) mg/dL Corrected Calcium (8.5-10.1) mg/dL Magnesium (1.8-2.4) mg/dL Total Bilirubin (0.2-1.0) mg/dL AST (15-37) U/L ALT (16-63) U/L Alkaline Phosphatase (46-116) U/L Creatine Kinase (39-308) U/L Creatine Kinase Index (0.0-4.0) % CK-MB (CK-2) (0.0-3.6) ng/mL Troponin I 0.168 H* 0.176 H* (<=0.056) ng/mL Total Protein (6.4-8.2) g/dL Albumin (3.4-5.0) g/dL Globulin Albumin/Globulin Ratio 12/23/16 12/23/16 Range/Units 06:27 06:27 WBC (4.0-10.0) x10^3/uL RBC (4.5-6.0) x10^6/uL Hgb (14.0-18.0) g/dL Hct (40.0-52.0) % MCV (78.0-93.0) fL MCH (26.0-32.0) pg MCHC (32.0-36.0) g/dL RDW Coeff of Diana (10.0-15.0) % Plt Count (130-400) x10^3/uL Add Manual Diff Neutrophils % (Manual) (50-80) % Lymphocytes % (Manual) (25-50) % Monocytes % (Manual) (2-11) % Eosinophils % (Manual) (0-4) % Platelet Estimate Giant Platelets Sodium 146 H (136-145) mmol/L Potassium 3.2 L (3.5-5.1) mmol/L Chloride 107 (98-107) mmol/L Carbon Dioxide 34 H (21-32) mmol/L BUN 32 H (7-18) mg/dL Creatinine 1.8 H (0.70-1.30) mg/dL Est Cr Clr Drug Dosing 35.49 mL/min Estimated GFR (MDRD) 37 Glucose 96 (74-106) mg/dL Calcium 8.3 L (8.5-10.1) mg/dL Corrected Calcium 9.18 (8.5-10.1) mg/dL Magnesium 1.9 (1.8-2.4) mg/dL Total Bilirubin 0.6 (0.2-1.0) mg/dL AST 54 H (15-37) U/L ALT 61 (16-63) U/L Alkaline Phosphatase 106 (46-116) U/L Creatine Kinase 111 (39-308) U/L Creatine Kinase Index 2.3 (0.0-4.0) % CK-MB (CK-2) 2.6 (0.0-3.6) ng/mL Troponin I 0.220 H* (<=0.056) ng/mL Total Protein 6.7 (6.4-8.2) g/dL Albumin 2.9 L (3.4-5.0) g/dL Globulin 3.8 Albumin/Globulin Ratio 0.76 PRERNA Results - Last 24 hrs: Microbiology 12/22/16 12:40 MRSA Surveillance Culture - Final Nares, Unspecified NO MRSA ISOLATED Med Orders - Current: Current Medications Allopurinol (Zyloprim) 100 mg PO DAILY [facility] Last Admin: 12/23/16 07:43 Dose: 100 mg Aspirin (Halfprin) 81 mg PO DAILY [facility] Last Admin: 12/23/16 07:42 Dose: 81 mg Calcium Carbonate (Calcium Carbonate/Vitamin D 1250 Mg-200 Unit) 1 tab PO BID [facility] Last Admin: 12/23/16 07:41 Dose: Not Given Cholecalciferol (Vitamin D3) 1,000 units PO DAILY [facility] Last Admin: 12/23/16 07:43 Dose: Not Given Cholestyramine Resin (Prevalite Packet) 4 gm PO DAILY [facility] Last Admin: 12/23/16 07:42 Dose: Not Given Citric Acid/Sodium Citrate (Bicitra Solution) 60 ml PO BID [facility] Last Admin: 12/23/16 07:41 Dose: 60 ml Clobetasol Propionate (Clobetasol 0.05%) 0 gm TOP BID [facility] Last Admin: 12/23/16 07:41 Dose: Not Given Clopidogrel Bisulfate (Plavix) 75 mg PO DAILY [facility] Last Admin: 12/23/16 07:42 Dose: 75 mg Cyanocobalamin (Vitamin B12) 1,000 mcg PO DAILY [facility] Last Admin: 12/23/16 07:43 Dose: Not Given Cyclobenzaprine HCl (Flexeril) 10 mg PO BEDTIME PRN PRN Reason: Muscle Spasm Ferrous Sulfate (Ferrous Sulfate) 325 mg PO BIDMEALS [facility] Last Admin: 12/23/16 07:41 Dose: Not Given Furosemide (Lasix) 20 mg IV DAILY [facility] Last Admin: 12/23/16 07:42 Dose: 20 mg Potassium Chloride/Dextrose/Sod Cl (D5 1/2 Ns W/ 40 Meq/L Kcl) 1,000 mls @ 150 mls/hr IV ASDIRECTED [facility] Isosorbide Mononitrate (Imdur) 30 mg PO DAILY [facility] Last Admin: 12/23/16 07:42 Dose: 30 mg Metoprolol Succinate (Toprol Xl) 25 mg PO DAILY [facility] Last Admin: 12/23/16 07:43 Dose: 25 mg Multivitamins/Minerals (Thera M Plus) 1 tab PO DAILY [facility] Last Admin: 12/23/16 07:43 Dose: Not Given Nitroglycerin (Nitrostat) 0.4 mg SL ASDIRECTED PRN PRN Reason: Chest Pain Gluc 2kcl/Chondr/Lissy Hy/Hy Ac ( Glucosamine & Chondroitin)Own Med 1 cap PO BID [facility] Last Admin: 12/23/16 07:42 Dose: Not Given Pantoprazole Sodium (Protonix) 40 mg PO DAILY [facility] Last Admin: 12/23/16 07:42 Dose: Not Given Penicillin V Potassium (Veetids) 250 mg PO DAILY [facility] Last Admin: 12/23/16 07:43 Dose: 250 mg Potassium Chloride (Klor-Con 10) 20 meq PO BIDMEALS [facility] Last Admin: 12/23/16 09:14 Dose: 20 meq Simvastatin (Zocor) 5 mg PO BEDTIME [facility] Last Admin: 12/22/16 20:23 Dose: 5 mg Sodium Chloride (Saline Flush) 10 ml FLUSH ASDIRECTED PRN PRN Reason: Keep Vein Open Last Admin: 12/22/16 21:00 Dose: 10 ml Discontinued Medications Furosemide (Lasix) 40 mg IV ONETIME ONE Stop: 12/22/16 10:29 Last Admin: 12/22/16 10:44 Dose: 40 mg *Q Meaningful Use (DIS) - VTE *Q VTE Criteria *Q: - Stroke *Q Stroke Criteria *Q: - AMI *Q AMI Criteria *Q:
--- NOTE | 2016-12-29 08:44 | ER ---
Date of Service: 12/22/2016 ADDENDUM: This patient's emergency room notes may be used as his admission H and P. MWK: 12/28/2016 17:44:00 MODL: 12/28/2016 23:10:29 /[id number]
== END 2016-12-23 11:56 | disposition short-term general hospital (02) ==
LOC: VM.ED 10:00 → VM.MS 12:15
PROVIDERS: ADMIT Physician Assistant; ATTEND Physician Assistant
DX: I25.10 Atherosclerotic heart disease of native coronary artery without angina pectoris (principal); I50.9 Heart failure, unspecified; R74.8 Abnormal levels of other serum enzymes; N18.3 Chronic kidney disease, stage 3 (moderate); Z79.82 Long term (current) use of aspirin; Z79.899 Other long term (current) drug therapy; Z95.1 Presence of aortocoronary bypass graft; Z90.81 Acquired absence of spleen; Z90.5 Acquired absence of kidney; Z93.2 Ileostomy status; Z88.1 Allergy status to other antibiotic agents; Z88.8 Allergy status to other drugs, medicaments and biological substances; J30.81 Allergic rhinitis due to animal (cat) (dog) hair and dander
CPT/HCPCS: 36415; 71020; 80053; 82550; 82553; 83735; 83880; 84484; 85008; 85025; 85610; 86788; 93005; 96374; 96376; 99285; A9270; G0378; J1940; J7050; 99217; 99220; 99284-GF

== ENCOUNTER 2017-05-23 22:38 | Observation (INO) | payer MEDICARE, OTHER ==
--- NOTE | 2017-05-23 23:04 | EDM.PDOC ---
ED HPI GENERAL MEDICAL PROBLEM - General Chief Complaint: Chest Pain Stated Complaint: Left Chest and arm pain Time Seen by Provider: 05/23/17 22:39 Source of Information: Reports: Patient, Family, RN, RN Notes Reviewed History Limitations: Reports: No Limitations - History of Present Illness INITIAL COMMENTS - FREE TEXT/NARRATIVE: Patient presents the emergency room at [facility] left arm pain and lateral left chest pain. The patient states his symptoms started after the [place] this evening around 9:30 PM. The patient denies any shortness of breath. The patient denies any cough. Patient denies any fluid retention or swelling of the legs. The patient denies any dizziness or headache. The patient has a long- standing cardiac history with stent placement. The patient's most recent cardiac intervention was December 2016. At that time the patient was started on Brilinta. Upon arrival to the emergency room, the patient states that his left lateral chest pain had resolved that he still continues to have left upper arm pain. The patient states that he was discharged from [facility] in [place] this morning after being admitted for acute upper GI bleed. The patient states on May 20 he started noticing increasing melena and black tarry stools in his ileostomy. The patient apparently drove himself to the hospital for further evaluation. The patient underwent an EGD yesterday morning which showed erythematous mucosa in the gastric body which was treated with argon plasma coagulation. The patient also had a Billroth II gastrojejunostomy that was erythematous and hemorrhagic in appearance. This was also treated with argon plasma anticoagulation. The rest of his EGD was normal in appearance. Cardiology recommended to hold the patient's aspirin but continue the Brilinta. If the patient continues to have black tarry stools and his hemoglobin continues to fall, cardiology would then consider holding the Brilinta. The patient was discharged from [facility] this morning. The only change in medicine was pantoprazole 40 mg daily was added. Patient did have acute on chronic blood loss anemia. His discharge hemoglobin was 8.2 today. Patient also has a history of Crohn's disease. The patient does take Pen-Vee K daily prophylactically status post splenectomy. Onset: Today Onset Date: 05/23/17 Duration: [place]ax[place]/Waning Chest Pain Score (Numeric/FACES): 1 - Related Data Allergies Allergy/AdvReac Type Severity Reaction Status Date / Time atorvastatin calcium Allergy Unknown Hives Verified 05/23/17 22:49 [From Lipitor] cephalexin monohydrate Allergy Unknown Cannot Verified 05/23/17 22:49 [From Keflex] Remember colesevelam HCl Allergy Unknown Cannot Verified 05/23/17 22:49 [From WelChol] Remember erythromycin base Allergy Unknown Cannot Verified 05/23/17 22:49 [Erythromycin Base] Remember gemfibrozil [From Lopid] Allergy Unknown Cannot Verified 05/23/17 22:49 Remember lisinopril Allergy Unknown Cannot Verified 05/23/17 22:49 Remember animal dander Allergy Sneezing Verified 05/23/17 22:49 midazolam HCl [From Versed] AdvReac Unknown Change Verified 05/23/17 22:49 Mental Status Home Meds: Home Meds Calcium Carbonate/Vitamin D3 [Calcium 600 + Vit D Tablet] 1 tab PO BID 04/05/13 [History] Cholecalciferol (Vitamin D3) [Vitamin D3] 1,000 unit PO DAILY 04/05/13 [History] Cyanocobalamin (Vitamin B-12) [Vitamin B-12] 1,000 mcg PO DAILY 04/05/13 [ History] Gluc 2KCl/Chondr/Lissy Hy/Hy Ac [Glucosamine & Chondroitin Cap] 1 cap PO BID [History] Multivitamin with Minerals [Multiple Vitamin] 1 tab PO DAILY 04/05/13 [History] Nitroglycerin [Nitrostat] 1 tab SL ASDIRECTED PRN 04/05/13 [History] Pantoprazole [ProTONIX] 40 mg PO BID 04/05/13 [History] Penicillin V Potassium 250 mg PO DAILY 04/05/13 [History] Allopurinol [Zyloprim] 100 mg PO DAILY 11/08/16 [History] Furosemide [Furosemide] 20 mg PO DAILY 11/08/16 [History] Acetaminophen/Diphenhydramine [Tylenol Pm Ex-Strength Caplet] 2 tab PO BEDTIME PRN 12/22/16 [History] Cholestyramine/Aspartame [Prevalite Powder] 4 gram PO DAILY 12/22/16 [History] Citric Acid/Sodium Citrate [Bicitra Solution] 60 ml PO BID 12/22/16 [History] Clobetasol [Clobetasol Propionate 0.05%] 1 applic TOP BID 12/22/16 [History] Ferrous Sulfate 325 mg PO BID 12/22/16 [History] Fluticasone Propionate [Flonase] 1 spray NASBOTH BID 12/22/16 [History] Isosorbide Mononitrate [Isosorbide Mononitrate ER] 30 mg PO DAILY 12/22/16 [ History] Metoprolol Succinate [Toprol XL] 25 mg PO DAILY 12/22/16 [History] Rosuvastatin [Crestor] 10 mg PO DAILY 01/27/17 [History] Ticagrelor [Brilinta] 90 mg PO BID 01/27/17 [History] Past Medical History HEENT History: Reports: Cataract, Hard of Hearing, Impaired Vision, Other (See Below) Other HEENT History: hypermetropia, presbyopia, vitreous degeneration Cardiovascular History: Reports: Bypass, CAD, Heart Failure, High Cholesterol, Hypertension, [place], Pacemaker, Stents, Other (See Below) Other Cardiovascular History: CABG and stents, heart block Respiratory History: Reports: Other (See Below) Other Respiratory History: WU, tried CPAP and was unable to use Gastrointestinal History: Reports: GERD, GI Bleed, Other (See Below) Other Gastrointestinal History: chrohns, disease, ostomy in place, primary sclerosing cholangitis Genitourinary History: Reports: Chronic Renal Insuffiency, Renal Calculus, Other (See Below) Other Genitourinary History: hx of kidney removal, proteinuria Musculoskeletal History: Reports: Arthritis, Gout, Osteoporosis, Other (See Below) Other Musculoskeletal History: hx distal ulnar fx, chondromalacia of patella, pelvic/thigh pain Neurological History: Reports: Other (See Below) Other Neuro History: periodic limb movement disorder Endocrine/Metabolic History: Reports: Vitamin D Deficiency, Other (See Below) Other Endocrine/Metabolic History: hypogonadism, hypertriglyceridemia Hematologic History: Reports: Anemia, Iron Deficiency, Other (See Below) Other Hematologic History: hx of low platelets, red blood cell antibody positive , autoimmunie hemolytic anemia Immunologic History: 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 Oncologic (Cancer) History: Reports: Basal Cell Carcinoma, Other (See Below) Other Oncologic History: myelodysplastic syndrome Dermatologic History: Reports: None - Past Surgical History HEENT Surgical History: Reports: Tonsillectomy Cardiovascular Surgical History: Reports: Carotid Endarterectomy, Coronary Artery Bypass, Coronary Artery Stent, Pacer Respiratory Surgical History: Reports: None GI Surgical History: Reports: Cholecystectomy, EGD, Other (See Below) Other GI Surgeries/Procedures: splenectomy, ileostomy Male Surgical History: Reports: Nephrectomy, Renal Calculus Neurological Surgical History: Reports: None Musculoskeletal Surgical History: Reports: Arthroscopic Procedure Social & Family History - Family History Family Medical History: Noncontributory - Tobacco Use Smoking Status *Q: Never Smoker Second Hand Smoke Exposure: No - Caffeine Use Caffeine Use: Reports: Soda - Alcohol Use Days Per Week of Alcohol Use: 0 - Recreational Drug Use Recreational Drug Use: No ED ROS GENERAL - Review of Systems Review Of Systems: See Below Constitutional: Denies: Fever, Chills, Weakness Respiratory: Denies: Shortness of Breath, Cough Cardiovascular: Reports: Chest Pain (resolved upon presentation to ED). Denies : Dyspnea on Exertion, Lightheadedness, Palpitations GI/Abdominal: Denies: Abdominal Pain, Nausea, Vomiting Musculoskeletal: Reports: Arm Pain (Left upper) Skin: Reports: No Symptoms Neurological: Reports: No Symptoms. Denies: Dizziness, Headache, Numbness, Paresthesia, Tingling ED EXAM, GENERAL - Physical Exam Exam: See Below Exam Limited By: No Limitations General Appearance: Alert, No Apparent Distress Respiratory/Chest: No Respiratory Distress, Lungs Clear, Normal Breath Sounds Cardiovascular: Normal Peripheral Pulses, Regular Rate, Rhythm, Systolic Murmur , Other (Paced) Peripheral Pulses: 2+: Radial (L), Radial (R) GI/Abdominal: Normal Bowel Sounds, Soft, Non-Tender Neurological: Alert, Oriented Skin Exam: Warm, Dry, Intact, Normal Color, No Rash EKG INTERPRETATION EKG Date: 05/23/17 Time: 22:45 Rhythm: Other Rate (Beats/Min): [address] [place]: Normal P-Wave: Absent QRS: Wide ST-T: Normal QT: Normal MO/PQ Interval: Absent, patient is AV Paced Comparison: No Change EKG Interpretation Comments: 1. AV Paced rhythm Course - Vital Signs Last Recorded V/S: Last Vital Signs Temp 36.8 C 05/23/17 22:50 Pulse 75 05/24/17 00:01 Resp 18 05/23/17 22:50 BP 144/65 H 05/24/17 00:01 Pulse Ox 100 05/24/17 00:01 - Orders/Labs/Meds Orders: Active Orders 24 hr Category Date Time Status EKG 12 Lead [EKG Documentation Completion] [RC] STAT Care 05/23/17 23:05 Active Labs: Laboratory Tests 05/23/17 05/23/17 Range/Units 23:16 23:16 WBC 6.1 (4.0-10.0) x10^3/uL RBC 3.15 L (4.5-6.0) x10^6/uL Hgb 9.0 L D (14.0-18.0) g/dL Hct 32.2 L (40.0-52.0) % MCV 102.2 H D (78.0-93.0) fL MCH 28.6 (26.0-32.0) pg MCHC 28.0 L (32.0-36.0) g/dL RDW Coeff of Diana 15.1 H (10.0-15.0) % Plt Count 2 L* (130-400) x10^3/uL Add Manual Diff Yes Neutrophils % (Manual) 67 (50-80) % Lymphocytes % (Manual) 15 L (25-50) % Monocytes % (Manual) 9 (2-11) % Eosinophils % (Manual) 9 H (0-4) % Nucleated RBCs 1 (0-5) /100WBC Platelet Estimate Marked dec L Giant Platelets Moderate H Hypochromasia 2+ moderate H Sodium 142 (136-145) mmol/L Potassium 4.1 (3.5-5.1) mmol/L Chloride 110 H (98-107) mmol/L Carbon Dioxide 23 D (21-32) mmol/L BUN 33 H (7-18) mg/dL Creatinine 1.9 H (0.70-1.30) mg/dL Est Cr Clr Drug Dosing 30.92 mL/min Estimated GFR (MDRD) 35 Glucose 96 (74-106) mg/dL Calcium 8.2 L (8.5-10.1) mg/dL Magnesium 2.0 (1.8-2.4) mg/dL Creatine Kinase 173 (39-308) U/L Creatine Kinase Index 3.8 (0.0-4.0) % CK-MB (CK-2) 6.5 H (0.0-3.6) ng/mL Troponin I 0.269 H* (<=0.056) ng/mL Departure - Departure Time of Disposition: 00:35 Disposition: Refer to Observation Reason for Transfer *Q: Other Condition: Good Clinical Impression: Chest pain in adult ED Communication - ED Communication Date/Time Date: 05/24/17 Time Called: 00:07 - Discussed Case With (1) Discussed Case With (1): Outpatient Provider (Dr. [facility]. Case discussed.) - Problem List Review Problem List Initiated/Reviewed/Updated: Yes - My Orders Last 24 Hours: My Active Orders 05/23/17 23:05 EKG 12 Lead [EKG Documentation Completion] [RC] STAT - Assessment/Plan Admission H&P: Please use this note as an admission H&P Last 24 Hours: My Active Orders 05/23/17 23:05 EKG 12 Lead [EKG Documentation Completion] [RC] STAT Plan: Labs and EKG was reviewed with patient. Case discussed with Dr. [facility]. Will admit patient observation for serial Troponin monitoring with EKGs. Patient agrees with admission and wishes to proceed.
--- NOTE | 2017-05-24 01:08 | PCM.HP ---
H&P History of Present Illness - General Date of Service: 05/24/17 Source of Information: Patient, Family, Old Records, RN History Limitations: Reports: No Limitations - History of Present Illness Initial Comments - Free Text/Narative: Patient presented the emergency room at [facility] earlier this evening with left arm pain and lateral left chest pain. The patient states his symptoms started after the [place] this evening around 9:30 PM last night. The patient denies any shortness of breath. The patient denies any cough. Patient denies any fluid retention or swelling of the legs. The patient denies any dizziness or headache. The patient has a long-standing cardiac history with stent placement. The patient's most recent cardiac intervention was December 2016. At that time the patient was started on Brilinta. Upon arrival to the emergency room, the patient states that his left lateral chest pain had resolved that he still continues to have left upper arm pain. During his ED stay , patient did not require any cardiac medications. His left arm pain had resolved prior to admission and his chest pain did not return. The patient states that he was discharged from [facility] in [place] this morning after being admitted for acute upper GI bleed. The patient states on May 20 he started noticing increasing melena and black tarry stools in his ileostomy. The patient apparently drove himself to the hospital for further evaluation. The patient underwent an EGD yesterday morning which showed erythematous mucosa in the gastric body which was treated with argon plasma coagulation. The patient also had a Billroth II gastrojejunostomy that was erythematous and hemorrhagic in appearance. This was also treated with argon plasma anticoagulation. The rest of his EGD was normal in appearance. Cardiology recommended to hold the patient's aspirin but continue the Brilinta. If the patient continues to have black tarry stools and his hemoglobin continues to fall, cardiology would then consider holding the Brilinta. The patient was discharged from [facility] this morning. The only change in medicine was pantoprazole 40 mg daily was added. Patient did have acute on chronic blood loss anemia. His discharge hemoglobin was 8.2 today. Patient also has a history of Crohn's disease. The patient does take Pen-Vee K daily prophylactically status post splenectomy. Symptom Onset Date: 05/23/17 Symptom Onset Time: 21:30 Duration of Symptoms: Reports: Resolved Prior to Arrival Location: Reports: Chest Chest Pain Score (Numeric/FACES): 1 - Related Data Allergies/Adverse Reactions: Allergies Allergy/AdvReac Type Severity Reaction Status Date / Time atorvastatin calcium Allergy Unknown Hives Verified 05/23/17 22:49 [From Lipitor] cephalexin monohydrate Allergy Unknown Cannot Verified 05/23/17 22:49 [From Keflex] Remember colesevelam HCl Allergy Unknown Cannot Verified 05/23/17 22:49 [From WelChol] Remember erythromycin base Allergy Unknown Cannot Verified 05/23/17 22:49 [Erythromycin Base] Remember gemfibrozil [From Lopid] Allergy Unknown Cannot Verified 05/23/17 22:49 Remember lisinopril Allergy Unknown Cannot Verified 05/23/17 22:49 Remember animal dander Allergy Sneezing Verified 05/23/17 22:49 midazolam HCl [From Versed] AdvReac Unknown Change Verified 05/23/17 22:49 Mental Status Home Medications: Home Meds Calcium Carbonate/Vitamin D3 [Calcium 600 + Vit D Tablet] 1 tab PO BID 04/05/13 [History] Cholecalciferol (Vitamin D3) [Vitamin D3] 1,000 unit PO DAILY 04/05/13 [History] Cyanocobalamin (Vitamin B-12) [Vitamin B-12] 1,000 mcg PO DAILY 04/05/13 [ History] Gluc 2KCl/Chondr/Lissy Hy/Hy Ac [Glucosamine & Chondroitin Cap] 1 cap PO BID [History] Multivitamin with Minerals [Multiple Vitamin] 1 tab PO DAILY 04/05/13 [History] Nitroglycerin [Nitrostat] 1 tab SL ASDIRECTED PRN 04/05/13 [History] Pantoprazole [ProTONIX] 40 mg PO BID 04/05/13 [History] Penicillin V Potassium 250 mg PO DAILY 04/05/13 [History] Allopurinol [Zyloprim] 100 mg PO DAILY 11/08/16 [History] Furosemide [Furosemide] 20 mg PO DAILY 11/08/16 [History] Acetaminophen/Diphenhydramine [Tylenol Pm Ex-Strength Caplet] 2 tab PO BEDTIME PRN 12/22/16 [History] Cholestyramine/Aspartame [Prevalite Powder] 4 gram PO DAILY 12/22/16 [History] Citric Acid/Sodium Citrate [Bicitra Solution] 60 ml PO BID 12/22/16 [History] Clobetasol [Clobetasol Propionate 0.05%] 1 applic TOP BID 12/22/16 [History] Ferrous Sulfate 325 mg PO BID 12/22/16 [History] Fluticasone Propionate [Flonase] 1 spray NASBOTH BID 12/22/16 [History] Isosorbide Mononitrate [Isosorbide Mononitrate ER] 30 mg PO DAILY 12/22/16 [ History] Metoprolol Succinate [Toprol XL] 25 mg PO DAILY 12/22/16 [History] Rosuvastatin [Crestor] 10 mg PO DAILY 01/27/17 [History] Ticagrelor [Brilinta] 90 mg PO BID 01/27/17 [History] Past Medical History HEENT History: Reports: Cataract, Hard of Hearing, Impaired Vision, Other (See Below) Other HEENT History: hypermetropia, presbyopia, vitreous degeneration Cardiovascular History: Reports: Bypass, CAD, Heart Failure, High Cholesterol, Hypertension, [place], Pacemaker, Stents, Other (See Below) Other Cardiovascular History: CABG and stents, heart block Respiratory History: Reports: Other (See Below) Other Respiratory History: WU, tried CPAP and was unable to use Gastrointestinal History: Reports: GERD, GI Bleed, Other (See Below) Other Gastrointestinal History: chrohns, disease, ostomy in place, primary sclerosing cholangitis Genitourinary History: Reports: Chronic Renal Insuffiency, Renal Calculus, Other (See Below) Other Genitourinary History: hx of kidney removal, proteinuria Musculoskeletal History: Reports: Arthritis, Gout, Osteoporosis, Other (See Below) Other Musculoskeletal History: hx distal ulnar fx, chondromalacia of patella, pelvic/thigh pain Neurological History: Reports: Other (See Below) Other Neuro History: periodic limb movement disorder Endocrine/Metabolic History: Reports: Vitamin D Deficiency, Other (See Below) Other Endocrine/Metabolic History: hypogonadism, hypertriglyceridemia Hematologic History: Reports: Anemia, Iron Deficiency, Other (See Below) Other Hematologic History: hx of low platelets, red blood cell antibody positive , autoimmunie hemolytic anemia Immunologic History: 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 Oncologic (Cancer) History: Reports: Basal Cell Carcinoma, Other (See Below) Other Oncologic History: myelodysplastic syndrome Dermatologic History: Reports: None - Past Surgical History HEENT Surgical History: Reports: Tonsillectomy Cardiovascular Surgical History: Reports: Carotid Endarterectomy, Coronary Artery Bypass, Coronary Artery Stent, Pacer Respiratory Surgical History: Reports: None GI Surgical History: Reports: Cholecystectomy, EGD, Other (See Below) Other GI Surgeries/Procedures: splenectomy, ileostomy Male Surgical History: Reports: Nephrectomy, Renal Calculus Neurological Surgical History: Reports: None Musculoskeletal Surgical History: Reports: Arthroscopic Procedure Social & Family History - Family History Family Medical History: Noncontributory - Tobacco Use Smoking Status *Q: Never Smoker Second Hand Smoke Exposure: No - Caffeine Use Caffeine Use: Reports: Soda - Alcohol Use Days Per Week of Alcohol Use: 0 - Recreational Drug Use Recreational Drug Use: No H&P Review of Systems - Review of Systems: Review Of Systems: See Below General: Denies: Fever, Chills, Weakness Pulmonary: Denies: Shortness of Breath, Cough Cardiovascular: Reports: Chest Pain (on admission). Denies: Palpitations, Dyspnea on Exertion Gastrointestinal: Denies: Abdominal Pain, Nausea, Vomiting Skin: Reports: No Symptoms Neurological: Denies: Dizziness, Headache, Numbness, Paresthesia, Tingling Exam - Exam Exam: See Below - Vital Signs Vital Signs: Last Vital Signs Temp 36.8 C 05/23/17 22:50 Pulse 75 05/24/17 00:01 Resp 18 05/23/17 22:50 BP 144/65 H 05/24/17 00:01 Pulse Ox 100 05/24/17 00:01 Weight: 67.132 kg - Exam General: Alert, Oriented Lungs: Clear to Auscultation, Normal Respiratory Effort Cardiovascular: Regular Rate, Regular Rhythm, Normal S1, Normal S2, Other (AV paced) GI/Abdominal Exam: Normal Bowel Sounds, Soft, Non-Tender Peripheral Pulses: 2+: Radial (L), Radial (R) Skin: Warm, Dry, Intact Neuro Extensive - Mental Status: Alert, Oriented x3 - Patient Data Result Diagrams: 05/23/17 23:16 05/23/17 23:16 *Q Meaningful Use (ADM) - VTE *Q VTE Criteria *Q: No risk for falls - Stroke *Q Stroke Criteria *Q: - AMI *Q AMI Criteria *Q: - Problem List (1) Chest pain in adult SNOMED Code(s): 88934022 ICD Code: R07.9 - CHEST PAIN, UNSPECIFIED Status: Acute Priority: Medium Current Visit: Yes Onset Date: ~05/23/17 (2) CAD (coronary artery disease) SNOMED Code(s): 48192907 ICD Code: I25.10 - ATHSCL HEART DISEASE OF [place] CORONARY ARTERY W/O ANG PCTRS Status: Chronic Priority: Medium Current Visit: No Qualifiers: Coronary Disease-Associated Artery/Lesion type: unspecified vessel or lesion type [place] vs. transplanted heart: [place] heart Associated angina: without angina Qualified Code(s): I25.10 - Atherosclerotic heart disease of [place] coronary artery without angina pectoris (3) Congestive heart failure SNOMED Code(s): 95430196 ICD Code: I50.9 - HEART FAILURE, UNSPECIFIED Status: Chronic Priority: Medium Current Visit: No Qualifiers: Congestive heart failure type: unspecified Qualified Code(s): I50.9 - Heart failure, unspecified (4) Anemia SNOMED Code(s): 409068335 ICD Code: D64.9 - ANEMIA, UNSPECIFIED Status: Chronic Current Visit: No Qualifiers: Chronic kidney disease stage: stage 3 (moderate) (5) Chronic kidney disease (CKD) SNOMED Code(s): 341863095 ICD Code: N18.9 - CHRONIC KIDNEY DISEASE, UNSPECIFIED Status: Chronic Current Visit: No Qualifiers: Chronic kidney disease stage: stage 3 (moderate) Qualified Code(s): N18.3 - Chronic kidney disease, stage 3 (moderate) (6) Crohns disease SNOMED Code(s): 05272162 ICD Code: K50.90 - CROHN'S DISEASE, UNSPECIFIED, WITHOUT COMPLICATIONS Status: Chronic Current Visit: No Problem List Initiated/Reviewed/Updated: Yes Assessment/Plan Comment:: 76-year-old male patient with a past medical history of coronary artery disease , congestive heart failure, complete heart block with pacemaker placement, hypertension, chronic kidney disease stage III, and status post splenectomy is admitted to the observation unit at [facility] for chest pain and adult. The patient has a history of chronic elevations of his Troponin levels. Last level was 0.274 January 2017. The patient will have serial cardiac enzymes monitored with EKGs per recommendation from [facility]. We will continue to hold the patient's aspirin due to her recent upper GI bleed. The patient will continue on Brilinta per cardiology recommendation. Otherwise no other changes with any medications. If the patient remained stable and troponins do not significantly elevated I do anticipated discharge home tomorrow morning. I do not anticipate a admission greater than 48 hours. The patient is a cold 1. The patient does wish to be transferred to a high-level care should the need arise. DVT prophylaxis with early ambulation.
[2017-05-24] MEDS ORDERED: NITROGLYCERIN SL PRN (01:21)
[2017-05-24] MEDS ORDERED: Sodium Chloride 0.9% 10 ML Syringe FLUSH PRN (01:23)
[2017-05-24] MEDS ORDERED: Nitroglycerin 0.4 MG Tab.SL SL PRN (01:37)
[2017-05-24] MEDS ORDERED: Acetaminophen 650 MG Tab.ER PO PRN (01:37)
[2017-05-24] MEDS ORDERED: Ticagrelor 90 MG Tab PO ONE (02:00)
[2017-05-24] MEDS ORDERED: Pantoprazole 40 MG Tab.CR PO SCH (07:00)
[2017-05-24] MEDS ORDERED: Isosorbide Mononitrate 30 MG Tab.ER PO SCH (08:00)
[2017-05-24] MEDS ORDERED: atorvaSTATin 40 MG Tab PO SCH (08:00)
[2017-05-24] MEDS ORDERED: Fluticasone Propionate Nasal Spray 16 GM Bottle NASBOTH SCH (08:00)
[2017-05-24] MEDS ORDERED: Allopurinol 100 MG Tab PO SCH (08:00)
[2017-05-24] MEDS ORDERED: Ferrous Sulfate 325 MG Tab PO SCH (08:00)
[2017-05-24] MEDS ORDERED: Furosemide 20 MG Tab PO SCH (08:00)
[2017-05-24] MEDS ORDERED: Penicillin V Potassium 500 MG Tab PO SCH (08:00)
[2017-05-24] MEDS ORDERED: Metoprolol Succinate 25 MG Tab.ER PO SCH (08:00)
[2017-05-24] MEDS ORDERED: Ticagrelor 90 MG Tab PO SCH (08:00)
--- NOTE | 2017-05-24 09:00 | PCM.DCSUM1 ---
Discharge Summary - Hospital Course HPI Initial Comments: Patient presented the emergency room at [facility] earlier last night with left arm pain and lateral left chest pain. The patient states his symptoms started after the [place] this evening around 9:30 PM last night. The patient did not have any shortness of breath. The patient denies any cough. Patient denies any fluid retention or swelling of the legs. The patient denies any dizziness or headache. The patient has a long-standing cardiac history with stent placement. The patient's most recent cardiac intervention was December 2016. At that time the patient was started on Brilinta. Upon arrival to the emergency room, the patient states that his left lateral chest pain had resolved that he still continues to have left upper arm pain. During his ED stay , patient did not require any cardiac medications. His left arm pain had resolved prior to admission and his chest pain did not return. The patient states that he was discharged from [facility] in [place] yesterday after being admitted for acute upper GI bleed. The patient states on May 20 he started noticing increasing melena and black tarry stools in his ileostomy. The patient apparently drove himself to the hospital for further evaluation. The patient underwent an EGD on 05/22 which showed erythematous mucosa in the gastric body which was treated with argon plasma coagulation. The patient also had a Billroth II gastrojejunostomy that was erythematous and hemorrhagic in appearance. This was also treated with argon plasma anticoagulation. The rest of his EGD was normal in appearance. Cardiology recommended to hold the patient's aspirin but continue the Brilinta. If the patient continues to have black tarry stools and his hemoglobin continues to fall, cardiology would then consider holding the Brilinta. The patient was discharged from [facility] yesterday morning. The only change in medicine was pantoprazole 40 mg daily was added. Patient did have acute on chronic blood loss anemia. His discharge hemoglobin was 8.2 yesterday morning. Hemoglobin here was 9.0. Patient also has a history of Crohn's disease. The patient does take Pen-Vee K daily prophylactically status post splenectomy. - Discharge Data Discharge Date: 05/24/17 Discharge Disposition: DC/Tfer to Acute Hospital 02 Condition: Good - Discharge Diagnosis/Problem(s) (1) Chest pain in adult SNOMED Code(s): 45990902 ICD Code: R07.9 - CHEST PAIN, UNSPECIFIED Status: Acute Priority: Medium Current Visit: Yes Onset Date: ~05/23/17 (2) CAD (coronary artery disease) SNOMED Code(s): 66551762 ICD Code: I25.10 - ATHSCL HEART DISEASE OF [place] CORONARY ARTERY W/O ANG PCTRS Status: Chronic Priority: Medium Current Visit: No Qualifiers: Coronary Disease-Associated Artery/Lesion type: unspecified vessel or lesion type [place] vs. transplanted heart: [place] heart Associated angina: without angina Qualified Code(s): I25.10 - Atherosclerotic heart disease of [place] coronary artery without angina pectoris (3) Congestive heart failure SNOMED Code(s): 13504612 ICD Code: I50.9 - HEART FAILURE, UNSPECIFIED Status: Chronic Priority: Medium Current Visit: No Qualifiers: Congestive heart failure type: unspecified Congestive heart failure chronicity: acute on chronic Qualified Code(s): I50.9 - Heart failure, unspecified (4) Anemia SNOMED Code(s): 502578621 ICD Code: D64.9 - ANEMIA, UNSPECIFIED Status: Chronic Current Visit: No Qualifiers: Chronic kidney disease stage: stage 3 (moderate) (5) Chronic kidney disease (CKD) SNOMED Code(s): 295813002 ICD Code: N18.9 - CHRONIC KIDNEY DISEASE, UNSPECIFIED Status: Chronic Current Visit: No Qualifiers: Chronic kidney disease stage: stage 3 (moderate) Qualified Code(s): N18.3 - Chronic kidney disease, stage 3 (moderate) (6) Crohns disease SNOMED Code(s): 89236311 ICD Code: K50.90 - CROHN'S DISEASE, UNSPECIFIED, WITHOUT COMPLICATIONS Status: Chronic Current Visit: No - Patient Summary/Data Operative Procedure(s) Performed: None Consults: [facility] Cardiology/Internal Med Labs Pending at D/C: None Planned Operative Procedure(s) after DC: None Hospital Course: Overall, the patient did well during his hospital stay. Patient continued to have very vague left lateral chest pain that now seemed to radiate to the left shoulder blade. Otherwise, no hemodynamic instability. Troponin continued to be elevated, therefor patient will be transferred to [facility] today for further evaluation and possible treatment. No other concerns. - Patient Instructions Diet: Heart Healthy Diet, Low Sodium Activity: Bedrest Driving: Do Not Drive Showering/Bathing: May Shower Notify Provider of: Fever, Increased Pain, Nausea and/or Vomiting - Discharge Plan Home Medications: Home Meds Calcium Carbonate/Vitamin D3 [Calcium 600 + Vit D Tablet] 1 tab PO BID 04/05/13 [History] Cholecalciferol (Vitamin D3) [Vitamin D3] 1,000 unit PO DAILY 04/05/13 [History] Cyanocobalamin (Vitamin B-12) [Vitamin B-12] 1,000 mcg PO DAILY 04/05/13 [ History] Gluc 2KCl/Chondr/Lissy Hy/Hy Ac [Glucosamine & Chondroitin Cap] 1 cap PO BID [History] Multivitamin with Minerals [Multiple Vitamin] 1 tab PO DAILY 04/05/13 [History] Nitroglycerin [Nitrostat] 1 tab SL ASDIRECTED PRN 04/05/13 [History] Pantoprazole [ProTONIX] 40 mg PO BID 04/05/13 [History] Penicillin V Potassium 250 mg PO DAILY 04/05/13 [History] Allopurinol [Zyloprim] 100 mg PO DAILY 11/08/16 [History] Furosemide 20 mg PO DAILY 11/08/16 [History] Acetaminophen/Diphenhydramine [Tylenol Pm Ex-Strength Caplet] 2 tab PO BEDTIME PRN 12/22/16 [History] Cholestyramine/Aspartame [Prevalite Powder] 4 gram PO DAILY 12/22/16 [History] Citric Acid/Sodium Citrate [Bicitra Solution] 60 ml PO BID 12/22/16 [History] Clobetasol [Temovate 0.05% Oint] 1 applic TOP BID 12/22/16 [History] Ferrous Sulfate 325 mg PO BID 12/22/16 [History] Fluticasone Propionate [Flonase] 1 spray NASBOTH BID 12/22/16 [History] Isosorbide Mononitrate [Isosorbide Mononitrate ER] 30 mg PO DAILY 12/22/16 [ History] Metoprolol Succinate [Toprol XL] 25 mg PO DAILY 12/22/16 [History] Rosuvastatin [Crestor] 10 mg PO DAILY 01/27/17 [History] Ticagrelor [Brilinta] 90 mg PO BID 01/27/17 [History] Acetaminophen/Diphenhydramine [Tylenol Pm Ex-Strength Caplet] 2 tab PO BEDTIME 05/24/17 [History] Forms: Interfacility Transfer EMTALA - Discharge Summary/Plan Comment DC Time >30 min.: Yes Discharge Summary/Plan Comment: Patient will be transferred to [facility] due to elevation in Troponin. Patient will be sent ALS ground. Report given to Dr. Charleen Padilla, accepting provider. - General Info Date of Service: 05/24/17 Functional Status: Reports: Tolerating Diet, Ambulating Numeric/FACES Score: 1 - Review of Systems General: Reports: No Symptoms Pulmonary: Denies: Shortness of Breath, Sputum Cardiovascular: Reports: Chest Pain (04/28 very vague) Gastrointestinal: Reports: No Symptoms Skin: Reports: No Symptoms Neurological: Reports: No Symptoms - Patient Data Vitals - Most Recent: Last Vital Signs Temp 36.7 C 05/24/17 05:27 Pulse 74 05/24/17 08:49 Resp 18 05/24/17 05:27 BP 125/51 L 05/24/17 08:51 Pulse Ox 98 05/24/17 05:27 Weight - Most Recent: 67.132 kg I&O - Last 24 hours: Intake & Output 05/23/17 05/24/17 05/24/17 22:59 06:59 14:59 Intake Total 1200 Output Total 650 Balance 550 Lab Results - Last 24 hrs: Laboratory Results - last 24 hr 05/24/17 05/24/17 05/24/17 Range/Units 03:38 07:00 07:00 Creatine Kinase 156 143 (39-308) U/L Creatine Kinase Index 5.3 H 8.0 H (0.0-4.0) % CK-MB (CK-2) 8.2 H 11.4 H (0.0-3.6) ng/mL Troponin I 0.978 H* 1.491 H* (<=0.056) ng/mL Med Orders - Current: Current Medications Acetaminophen (Tylenol Arthritis Pain) 650 mg PO Q8H PRN PRN Reason: Pain/Fever Last Admin: 05/24/17 01:57 Dose: 650 mg Allopurinol (Zyloprim) 100 mg PO DAILY [facility]LEEN Last Admin: 05/24/17 08:48 Dose: 100 mg Atorvastatin Calcium (Lipitor) 40 mg PO DAILY [facility] Last Admin: 05/24/17 08:56 Dose: 40 mg Ferrous Sulfate (Ferrous Sulfate) 325 mg PO BID [facility] Last Admin: 05/24/17 08:48 Dose: 325 mg Fluticasone Propionate (Flonase) 0 gm NASBOTH BID [facility] Furosemide (Lasix) 20 mg PO DAILY [facility] Last Admin: 05/24/17 08:48 Dose: 20 mg Isosorbide Mononitrate (Imdur) 30 mg PO DAILY [facility] Last Admin: 05/24/17 08:51 Dose: 30 mg Metoprolol Succinate (Toprol Xl) 25 mg PO DAILY [facility] Last Admin: 05/24/17 08:49 Dose: 25 mg Nitroglycerin (Nitrostat) 0.4 mg SL Q5M PRN PRN Reason: Chest Pain [facility] Admin: 05/24/17 07:20 Dose: 40 mg Penicillin V Potassium (Veetids) 250 mg PO DAILY [facility] Last Admin: 05/24/17 08:49 Dose: 250 mg Sodium Chloride (Saline Flush) 10 ml FLUSH ASDIRECTED PRN PRN Reason: Keep Vein Open Ticagrelor (Brilinta) 90 mg PO BID [facility] Last Admin: 05/24/17 08:48 Dose: 90 mg Discontinued Medications Non-Formulary Medication (Nitroglycerin [Nitrostat]) 1 tab SL ASDIRECTED PRN PRN Reason: Chest Pain Ticagrelor (Brilinta) 90 mg PO ONETIME ONE Stop: 05/24/17 02:01 Last Admin: 05/24/17 01:56 Dose: 90 mg - Exam General: Reports: Alert, Oriented Lungs: Reports: Clear to Auscultation, Normal Respiratory Effort Cardiovascular: Reports: Regular Rate, Regular Rhythm GI/Abdominal Exam: Normal Bowel Sounds, Soft, Non-Tender Skin: Reports: Warm, Dry, Intact Neurological: Reports: No New Focal Deficit *Q Meaningful Use (DIS) - VTE *Q VTE Criteria *Q: VTE Mechanical Contraindications *Q: At Risk for Falls - Stroke *Q Stroke Criteria *Q: - AMI *Q AMI Criteria *Q:
[2017-05-24 10:39] VITALS: BP 122/59
== END 2017-05-24 10:05 | disposition short-term general hospital (02) ==
LOC: VM.ED 22:38 → VM.MS 05-24 00:35 → UNDOADMOB 05-24 00:40
PROVIDERS: ADMIT Nurse Practitioner Family; ATTEND Nurse Practitioner Family
DX: R07.9 Chest pain, unspecified (principal); I25.10 Atherosclerotic heart disease of native coronary artery without angina pectoris; I50.9 Heart failure, unspecified; D64.9 Anemia, unspecified; N18.3 Chronic kidney disease, stage 3 (moderate); K50.90 Crohn's disease, unspecified, without complications; E78.00 Pure hypercholesterolemia, unspecified; I13.0 Hypertensive heart and chronic kidney disease with heart failure and stage 1 through stage 4 chronic kidney disease, or unspecified chronic kidney disease; I25.2 Old myocardial infarction; K21.9 Gastro-esophageal reflux disease without esophagitis; M19.90 Unspecified osteoarthritis, unspecified site; M10.9 Gout, unspecified; M81.0 Age-related osteoporosis without current pathological fracture; E55.9 Vitamin D deficiency, unspecified; Z90.89 Acquired absence of other organs; Z79.899 Other long term (current) drug therapy; Z88.8 Allergy status to other drugs, medicaments and biological substances; Z88.1 Allergy status to other antibiotic agents; Z91.09 Other allergy status, other than to drugs and biological substances; Z95.0 Presence of cardiac pacemaker; Z95.5 Presence of coronary angioplasty implant and graft; Z95.1 Presence of aortocoronary bypass graft; Z93.2 Ileostomy status; Z87.442 Personal history of urinary calculi; Z98.890 Other specified postprocedural states; Z90.49 Acquired absence of other specified parts of digestive tract; Z90.81 Acquired absence of spleen
CPT/HCPCS: 36415; 80048; 82550; 82553; 83735; 84484; 85025; 93005; 99285; A9270-GY; G0378

== ENCOUNTER 2017-08-28 13:57 | Emergency (ER) | payer MEDICARE, OTHER ==
[2017-08-28 14:06] VITALS: BP 129/49
--- NOTE | 2017-08-28 14:31 | EDM.PDOC ---
ED HPI GENERAL MEDICAL PROBLEM - General Chief Complaint: Laceration Stated Complaint: HAND INJURY Time Seen by Provider: 08/28/17 14:15 Source of Information: Reports: Patient History Limitations: Reports: No Limitations - History of Present Illness INITIAL COMMENTS - FREE TEXT/NARRATIVE: Pt was carrying a box through a door and caught it on the wall ledge causing a laceration to the hand. Pt was trying to control the bleeding but not successful. Pt is on blood thinners and is being regulated with weekly labs. Onset: Sudden Right Hand Pain Score (Numeric/FACES): 2 - Related Data Allergies Allergy/AdvReac Type Severity Reaction Status Date / Time atorvastatin calcium Allergy Unknown Hives Verified 07/24/17 11:05 [From Lipitor] cephalexin monohydrate Allergy Unknown Cannot Verified 07/24/17 11:05 [From Keflex] Remember colesevelam HCl Allergy Unknown Cannot Verified 07/24/17 11:05 [From WelChol] Remember erythromycin base Allergy Unknown Cannot Verified 07/24/17 11:05 [Erythromycin Base] Remember gemfibrozil [From Lopid] Allergy Unknown Cannot Verified 07/24/17 11:05 Remember lisinopril Allergy Unknown Cannot Verified 07/24/17 11:05 Remember animal dander Allergy Sneezing Verified 07/24/17 11:05 midazolam HCl [From Versed] AdvReac Unknown Change Verified 07/24/17 11:05 Mental Status Home Meds: Home Meds Calcium Carbonate/Vitamin D3 [Calcium 600 + Vit D Tablet] 1 tab PO BID 04/05/13 [History] Cholecalciferol (Vitamin D3) [Vitamin D3] 1,000 unit PO DAILY 04/05/13 [History] Cyanocobalamin (Vitamin B-12) [Vitamin B-12] 1,000 mcg PO DAILY 04/05/13 [ History] Gluc 2KCl/Chondr/Lissy Hy/Hy Ac [Glucosamine & Chondroitin Cap] 1 cap PO BID [History] Multivitamin with Minerals [Multiple Vitamin] 1 tab PO DAILY 04/05/13 [History] Nitroglycerin [Nitrostat] 1 tab SL ASDIRECTED PRN 04/05/13 [History] Pantoprazole [ProTONIX] 40 mg PO BID 04/05/13 [History] Penicillin V Potassium 250 mg PO DAILY 04/05/13 [History] Allopurinol [Zyloprim] 100 mg PO DAILY 11/08/16 [History] Furosemide 20 mg PO DAILY 11/08/16 [History] Acetaminophen/Diphenhydramine [Tylenol Pm Ex-Strength Caplet] 2 tab PO BEDTIME PRN 12/22/16 [History] Cholestyramine/Aspartame [Prevalite Powder] 4 gram PO DAILY 12/22/16 [History] Citric Acid/Sodium Citrate [Bicitra Solution] 60 ml PO BID 12/22/16 [History] Clobetasol [Temovate 0.05% Oint] 1 applic TOP BID 12/22/16 [History] Ferrous Sulfate 325 mg PO BID 12/22/16 [History] Fluticasone Propionate [Flonase] 1 spray NASBOTH BID 12/22/16 [History] Isosorbide Mononitrate [Isosorbide Mononitrate ER] 30 mg PO DAILY 12/22/16 [ History] Metoprolol Succinate [Toprol XL] 25 mg PO DAILY 12/22/16 [History] Rosuvastatin [Crestor] 10 mg PO DAILY 01/27/17 [History] Ticagrelor [Brilinta] 90 mg PO BID 01/27/17 [History] Acetaminophen/Diphenhydramine [Tylenol Pm Ex-Strength Caplet] 2 tab PO BEDTIME 05/24/17 [History] Past Medical History HEENT History: Reports: Cataract, Hard of Hearing, Impaired Vision, Other (See Below) Other HEENT History: hypermetropia, presbyopia, vitreous degeneration Cardiovascular History: Reports: Bypass, CAD, Heart Failure, High Cholesterol, Hypertension, CO, Pacemaker, Stents, Other (See Below) Other Cardiovascular History: CABG and stents, heart block Respiratory History: Reports: Other (See Below) Other Respiratory History: WU, tried CPAP and was unable to use Gastrointestinal History: Reports: GERD, GI Bleed, Other (See Below) Other Gastrointestinal History: chrohns, disease, ostomy in place, primary sclerosing cholangitis Genitourinary History: Reports: Chronic Renal Insuffiency, Renal Calculus, Other (See Below) Other Genitourinary History: hx of kidney removal, proteinuria Musculoskeletal History: Reports: Arthritis, Gout, Osteoporosis, Other (See Below) Other Musculoskeletal History: hx distal ulnar fx, chondromalacia of patella, pelvic/thigh pain Neurological History: Reports: Other (See Below) Other Neuro History: periodic limb movement disorder Endocrine/Metabolic History: Reports: Vitamin D Deficiency, Other (See Below) Other Endocrine/Metabolic History: hypogonadism, hypertriglyceridemia Hematologic History: Reports: Anemia, Iron Deficiency, Other (See Below) Other Hematologic History: hx of low platelets, red blood cell antibody positive , autoimmunie hemolytic anemia Immunologic History: 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 Oncologic (Cancer) History: Reports: Basal Cell Carcinoma, Other (See Below) Other Oncologic History: myelodysplastic syndrome Dermatologic History: Reports: None - Past Surgical History HEENT Surgical History: Reports: Tonsillectomy Cardiovascular Surgical History: Reports: Carotid Endarterectomy, Coronary Artery Bypass, Coronary Artery Stent, Pacer Respiratory Surgical History: Reports: None GI Surgical History: Reports: Cholecystectomy, EGD, Other (See Below) Other GI Surgeries/Procedures: splenectomy, ileostomy Male Surgical History: Reports: Nephrectomy, Renal Calculus Neurological Surgical History: Reports: None Musculoskeletal Surgical History: Reports: Arthroscopic Procedure Social & Family History - Family History Family Medical History: Noncontributory - Tobacco Use Smoking Status *Q: Never Smoker - Caffeine Use Caffeine Use: Reports: Soda - Recreational Drug Use Recreational Drug Use: No ED ROS GENERAL - Review of Systems Review Of Systems: See Below Constitutional: Reports: No Symptoms HEENT: Reports: No Symptoms Respiratory: Reports: No Symptoms Cardiovascular: Reports: No Symptoms GI/Abdominal: Reports: No Symptoms Musculoskeletal: Reports: No Symptoms Skin: Reports: No Symptoms Neurological: Reports: No Symptoms Psychiatric: Reports: No Symptoms Immunologic: Reports: No Symptoms ED EXAM, SKIN/RASH Exam: See Below Exam Limited By: No Limitations General Appearance: Alert, WD/WN, No Apparent Distress Respiratory/Chest: No Respiratory Distress, No Accessory Muscle Use Cardiovascular: Normal Peripheral Pulses Extremities: Normal Inspection Neurological: Alert, Oriented Psychiatric: Normal Affect Skin: Warm, Dry, Normal Color, Wound/Incision (superficail abrasions x2 on the right hand. mild bleeding noted. ) ED SKIN PROCEDURES - Laceration/Wound Repair Right Hand Lac/Wound length In cm: 5 (v shape, second site 2cm length linear edges. ) Appearance: Superficial Distal NVT: Neuro & Vascular Intact, No Tendon Injury Closed with: Wound Adhesive Course - Vital Signs Last Recorded V/S: Last Vital Signs Temp 36.9 C 08/28/17 14:02 Pulse 65 08/28/17 14:02 Resp 16 08/28/17 14:02 BP 129/49 L 08/28/17 14:02 Pulse Ox 100 08/28/17 14:02 Departure - Departure Time of Disposition: 14:45 Disposition: Home, Self-Care 01 Condition: Good Clinical Impression: Abrasion - Discharge Information Instructions: Stitches, Mitch, or Adhesive Wound Closure, [id number] Referrals: Cecily oBnner, [Primary Care Provider] - Additional Instructions: 1. keep the area dry 2. Keep the area covered 3. wear gloves when carrying items or working with your hands 4. Activity and diet as tolerated 5. Follow with PCP within a week if not better - Assessment/Plan Plan: 1. control bleeding 2. Adhesive applied to control bleeding with success 3. Dressing applied 4. Pt is to follow up as needed or return to the ER if bleeding returns.
== END 2017-08-28 14:44 | disposition home or self-care (01) ==
LOC: VM.ED 13:57
DX: S61.411A Laceration without foreign body of right hand, initial encounter (principal); I13.0 Hypertensive heart and chronic kidney disease with heart failure and stage 1 through stage 4 chronic kidney disease, or unspecified chronic kidney disease; I50.9 Heart failure, unspecified; N18.9 Chronic kidney disease, unspecified; D64.9 Anemia, unspecified; I25.810 Atherosclerosis of coronary artery bypass graft(s) without angina pectoris; K21.9 Gastro-esophageal reflux disease without esophagitis; E78.00 Pure hypercholesterolemia, unspecified; I25.2 Old myocardial infarction; Z87.442 Personal history of urinary calculi; Z88.1 Allergy status to other antibiotic agents; Z88.8 Allergy status to other drugs, medicaments and biological substances; Z79.899 Other long term (current) drug therapy; W23.1XXA Caught, crushed, jammed, or pinched between stationary objects, initial encounter
CPT/HCPCS: 12001; 99282

== ENCOUNTER 2017-10-17 18:17 | Emergency (ER) | payer MEDICARE, OTHER ==
[2017-10-17 18:23] VITALS: BP 119/61
[2017-10-17] MEDS ORDERED: Oxymetazoline 0.05% Nasal Spray 15 ML Bottle NAS ONE (18:37)
--- NOTE | 2017-10-17 18:42 | EDM.PDOC ---
ED HPI GENERAL MEDICAL PROBLEM - General Chief Complaint: ENT Problem Stated Complaint: NOSE BLEED Time Seen by Provider: 10/17/17 18:35 Source of Information: Reports: Patient History Limitations: Reports: No Limitations - History of Present Illness INITIAL COMMENTS - FREE TEXT/NARRATIVE: Patient states he was looking at the sun this evening and this caused him to sneeze. This action did lead to a bloody nose. Basil states this started about 45 minutes ago. He is no longer actively bleeding. He has no other complaints this evening. Onset: Today, Sudden Duration: Resolved Prior to Arrival - Related Data Allergies Allergy/AdvReac Type Severity Reaction Status Date / Time atorvastatin calcium Allergy Unknown Hives Verified 08/28/17 14:53 [From Lipitor] cephalexin monohydrate Allergy Unknown Cannot Verified 08/28/17 14:53 [From Keflex] Remember colesevelam HCl Allergy Unknown Cannot Verified 08/28/17 14:53 [From WelChol] Remember erythromycin base Allergy Unknown Cannot Verified 08/28/17 14:53 [Erythromycin Base] Remember gemfibrozil [From Lopid] Allergy Unknown Cannot Verified 08/28/17 14:53 Remember lisinopril Allergy Unknown Cannot Verified 08/28/17 14:53 Remember animal dander Allergy Sneezing Verified 08/28/17 14:53 midazolam HCl [From Versed] AdvReac Unknown Change Verified 08/28/17 14:53 Mental Status Home Meds: Home Meds Calcium Carbonate/Vitamin D3 [Calcium 600 + Vit D Tablet] 1 tab PO BID 04/05/13 [History] Cholecalciferol (Vitamin D3) [Vitamin D3] 1,000 unit PO DAILY 04/05/13 [History] Cyanocobalamin (Vitamin B-12) [Vitamin B-12] 1,000 mcg PO DAILY 04/05/13 [ History] Gluc 2KCl/Chondr/Lissy Hy/Hy Ac [Glucosamine & Chondroitin Cap] 1 cap PO BID [History] Multivitamin with Minerals [Multiple Vitamin] 1 tab PO DAILY 04/05/13 [History] Nitroglycerin [Nitrostat] 1 tab SL ASDIRECTED PRN 04/05/13 [History] Pantoprazole [ProTONIX] 40 mg PO BID 04/05/13 [History] Penicillin V Potassium 250 mg PO DAILY 04/05/13 [History] Allopurinol [Zyloprim] 100 mg PO DAILY 11/08/16 [History] Furosemide 20 mg PO DAILY 11/08/16 [History] Acetaminophen/Diphenhydramine [Tylenol Pm Ex-Strength Caplet] 2 tab PO BEDTIME PRN 12/22/16 [History] Cholestyramine/Aspartame [Prevalite Powder] 4 gram PO DAILY 12/22/16 [History] Citric Acid/Sodium Citrate [Bicitra Solution] 60 ml PO BID 12/22/16 [History] Clobetasol [Temovate 0.05% Oint] 1 applic TOP BID 12/22/16 [History] Ferrous Sulfate 325 mg PO BID 12/22/16 [History] Fluticasone Propionate [Flonase] 1 spray NASBOTH BID 12/22/16 [History] Isosorbide Mononitrate [Isosorbide Mononitrate ER] 30 mg PO DAILY 12/22/16 [ History] Metoprolol Succinate [Toprol XL] 25 mg PO DAILY 12/22/16 [History] Rosuvastatin [Crestor] 10 mg PO DAILY 01/27/17 [History] Ticagrelor [Brilinta] 90 mg PO BID 01/27/17 [History] Acetaminophen/Diphenhydramine [Tylenol Pm Ex-Strength Caplet] 2 tab PO BEDTIME 05/24/17 [History] Past Medical History HEENT History: Reports: Cataract, Hard of Hearing, Impaired Vision, Other (See Below) Other HEENT History: hypermetropia, presbyopia, vitreous degeneration Cardiovascular History: Reports: Bypass, CAD, Heart Failure, High Cholesterol, Hypertension, [place], Pacemaker, Stents, Other (See Below) Other Cardiovascular History: CABG and stents, heart block Respiratory History: Reports: Other (See Below) Other Respiratory History: WU, tried CPAP and was unable to use Gastrointestinal History: Reports: GERD, GI Bleed, Other (See Below) Other Gastrointestinal History: chrohns, disease, ostomy in place, primary sclerosing cholangitis Genitourinary History: Reports: Chronic Renal Insuffiency, Renal Calculus, Other (See Below) Other Genitourinary History: hx of kidney removal, proteinuria Musculoskeletal History: Reports: Arthritis, Gout, Osteoporosis, Other (See Below) Other Musculoskeletal History: hx distal ulnar fx, chondromalacia of patella, pelvic/thigh pain Neurological History: Reports: Other (See Below) Other Neuro History: periodic limb movement disorder Endocrine/Metabolic History: Reports: Vitamin D Deficiency, Other (See Below) Other Endocrine/Metabolic History: hypogonadism, hypertriglyceridemia Hematologic History: Reports: Anemia, Iron Deficiency, Other (See Below) Other Hematologic History: hx of low platelets, red blood cell antibody positive , autoimmunie hemolytic anemia Immunologic History: 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 Oncologic (Cancer) History: Reports: Basal Cell Carcinoma, Other (See Below) Other Oncologic History: myelodysplastic syndrome Dermatologic History: Reports: None - Past Surgical History HEENT Surgical History: Reports: Tonsillectomy Cardiovascular Surgical History: Reports: Carotid Endarterectomy, Coronary Artery Bypass, Coronary Artery Stent, Pacer Respiratory Surgical History: Reports: None GI Surgical History: Reports: Cholecystectomy, EGD, Other (See Below) Other GI Surgeries/Procedures: splenectomy, ileostomy Male Surgical History: Reports: Nephrectomy, Renal Calculus Neurological Surgical History: Reports: None Musculoskeletal Surgical History: Reports: Arthroscopic Procedure Social & Family History - Family History Family Medical History: Noncontributory - Tobacco Use Smoking Status *Q: Unknown Ever Smoked - Caffeine Use Caffeine Use: Reports: Soda ED ROS ENT - Review of Systems Review Of Systems: See Below Constitutional: Reports: No Symptoms HEENT: Reports: Nosebleed Respiratory: Reports: No Symptoms Cardiovascular: Reports: No Symptoms Endocrine: Reports: No Symptoms GI/Abdominal: Reports: No Symptoms : Reports: No Symptoms Musculoskeletal: Reports: No Symptoms Skin: Reports: No Symptoms Neurological: Reports: No Symptoms Psychiatric: Reports: No Symptoms Hematologic/Lymphatic: Reports: No Symptoms Immunologic: Reports: No Symptoms ED EXAM, ENT - Physical Exam Exam: See Below Exam Limited By: No Limitations General Appearance: Alert, WD/WN, No Apparent Distress Eye Exam: Bilateral Eye: EOMI, Normal Inspection Nose: Dried Blood. No: Active Bleeding Neurological: Alert, Oriented, CN II-XII Intact, Normal Cognition, Normal Gait, Normal Reflexes, No Motor/Sensory Deficits Course - Vital Signs Last Recorded V/S: Last Vital Signs Temp 36.3 C 10/17/17 18:17 Pulse 75 10/17/17 18:17 Resp 18 10/17/17 18:17 BP 119/61 10/17/17 18:17 Pulse Ox 96 10/17/17 18:17 - Re-Assessments/Exams Free Text/Narrative Re-Assessment/Exam: 10/17/17 18:39 nasal inspection shows resolved bleeding. with some clotting. Will administer 2 Afrin sprays and monitor Departure - Departure Time of Disposition: 18:46 Disposition: Home, Self-Care 01 Condition: Good Clinical Impression: Epistaxis - Discharge Information Instructions: Nosebleed, Adult, [id number] Additional Instructions: I am going to send you home with some Afrin spray. If you develop a nose bleed again later this evening I want you to: 1. blow your nose to empty clots and 2. spray 2-3 squirts of Afrin to the affected side. If this does not resolve the bleeding then come in to the ER Use saline nasal spray 2-3 times daily to keep the nasal skin moist to reduce the chance of additional nose bleeds. Please call us if you have any questions or concerns. - Problem List & Annotations (1) Epistaxis SNOMED Code(s): 501787456 Code(s): R04.0 - EPISTAXIS Status: Acute Priority: Low - Problem List Review Problem List Initiated/Reviewed/Updated: Yes - Assessment/Plan Assessment:: left nare epistaxis Plan: I am going to send you home with some Afrin spray. If you develop a nose bleed again later this evening I want you to: 1. blow your nose to empty clots and 2. spray 2-3 squirts of Afrin to the affected side. If this does not resolve the bleeding then come in to the ER Use saline nasal spray 2-3 times daily to keep the nasal skin moist to reduce the chance of additional nose bleeds. Please call us if you have any questions or concerns.
== END 2017-10-17 18:58 | disposition home or self-care (01) ==
LOC: VM.ED 18:17
DX: R04.0 Epistaxis (principal); I11.0 Hypertensive heart disease with heart failure; I50.9 Heart failure, unspecified; I25.2 Old myocardial infarction; K21.9 Gastro-esophageal reflux disease without esophagitis; Z87.442 Personal history of urinary calculi; Z95.0 Presence of cardiac pacemaker; Z79.899 Other long term (current) drug therapy
CPT/HCPCS: 99283; A9270

== ENCOUNTER 2018-08-07 19:56 | Emergency (ER) | payer MEDICARE, OTHER ==
--- NOTE | 2018-08-07 20:05 | EDM.PDOC ---
ED HPI GENERAL MEDICAL PROBLEM - General Chief Complaint: ENT Problem Stated Complaint: UNCONTROLLED NOSE BLEED Time Seen by Provider: 08/07/18 19:58 Source of Information: Reports: Patient, Old Records, RN, RN Notes Reviewed History Limitations: Reports: No Limitations - History of Present Illness INITIAL COMMENTS - FREE TEXT/NARRATIVE: Patient returns to the ED for an uncontrolled nose bleed. Patient was seen earlier today and had the anterior septal turbinate cauterized with silver nitrate. Patient states it started to rebleed about 1/2 hour ago. He has tried holding pressure for 10 minutes without any success of controlling the nose bleed. Onset: Today - Related Data Allergies Allergy/AdvReac Type Severity Reaction Status Date / Time morphine Allergy Severe Other Verified 08/07/18 13:55 atorvastatin calcium Allergy Unknown Hives Verified 08/07/18 13:55 [From Lipitor] cephalexin monohydrate Allergy Unknown Cannot Verified 08/07/18 13:55 [From Keflex] Remember colesevelam HCl Allergy Unknown Cannot Verified 08/07/18 13:55 [From WelChol] Remember erythromycin base Allergy Unknown Cannot Verified 08/07/18 13:55 [Erythromycin Base] Remember gemfibrozil [From Lopid] Allergy Unknown Cannot Verified 08/07/18 13:55 Remember lisinopril Allergy Unknown Cannot Verified 08/07/18 13:55 Remember animal dander Allergy Sneezing Verified 08/07/18 13:55 midazolam HCl [From Versed] AdvReac Unknown Change Verified 08/07/18 13:55 Mental Status Home Meds: Home Meds Calcium Carbonate/Vitamin D3 [Calcium 600 + Vit D Tablet] 1 tab PO BID 04/05/13 [History] Cyanocobalamin (Vitamin B-12) [Vitamin B-12] 1,000 mcg PO DAILY 04/05/13 [ History] Penicillin V Potassium 250 mg PO DAILY 04/05/13 [History] Allopurinol [Zyloprim] 200 mg PO DAILY 11/08/16 [History] Citric Acid/Sodium Citrate [Bicitra Solution] 60 ml PO BID 12/22/16 [History] Ferrous Sulfate 325 mg PO BID 12/22/16 [History] Isosorbide Mononitrate [Isosorbide Mononitrate ER] 30 mg PO DAILY 12/22/16 [ History] Metoprolol Succinate [Toprol XL] 25 mg PO DAILY 12/22/16 [History] Rosuvastatin [Crestor] 10 mg PO DAILY 01/27/17 [History] Ascorbic Acid [Vitamin C] 250 mg PO BID 10/17/17 [History] Calcitriol [Rocaltrol] 0.25 mcg PO Q48H 10/17/17 [History] Torsemide [Demadex] 20 mg PO Q48H 10/17/17 [History] Alum Hydrox/Mag Hydrox/Simeth [Mag-Al Plus] 15 ml PO BEDTIME 03/26/18 [History] Tamsulosin HCl [Flomax] 0.4 mg PO DAILY 03/26/18 [History] D5 1/2 NS w/ 20 mEq/L KCl [KCl 20 mEq in D5W-1/2 NS] 100 ml IV ASDIRECTED bag 03/27/18 [Rx] HYDROmorphone [Dilaudid] 0.4 mg IVPUSH Q3H PRN syringe 03/27/18 [Rx] Ondansetron [Zofran] 4 mg IVPUSH Q8H PRN vial 03/27/18 [Rx] Past Medical History HEENT History: Reports: Cataract, Hard of Hearing, Impaired Vision, Other (See Below) Other HEENT History: hypermetropia, presbyopia, vitreous degeneration Cardiovascular History: Reports: Bypass, CAD, Heart Failure, High Cholesterol, Hypertension, [place], Pacemaker, Stents, Other (See Below) Other Cardiovascular History: CABG and stents, heart block Respiratory History: Reports: Other (See Below) Other Respiratory History: WU, tried CPAP and was unable to use Gastrointestinal History: Reports: GERD, GI Bleed, Other (See Below) Other Gastrointestinal History: chrohns, disease, ostomy in place, primary sclerosing cholangitis Genitourinary History: Reports: Chronic Renal Insuffiency, Renal Calculus, Other (See Below) Other Genitourinary History: hx of kidney removal, proteinuria Musculoskeletal History: Reports: Arthritis, Gout, Osteoporosis, Other (See Below) Other Musculoskeletal History: hx distal ulnar fx, chondromalacia of patella, pelvic/thigh pain Neurological History: Reports: Other (See Below) Other Neuro History: periodic limb movement disorder Endocrine/Metabolic History: Reports: Vitamin D Deficiency, Other (See Below) Other Endocrine/Metabolic History: hypogonadism, hypertriglyceridemia Hematologic History: Reports: Anemia, Iron Deficiency, Other (See Below) Other Hematologic History: hx of low platelets, red blood cell antibody positive , autoimmunie hemolytic anemia Immunologic History: 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 Oncologic (Cancer) History: Reports: Basal Cell Carcinoma, Other (See Below) Other Oncologic History: myelodysplastic syndrome Dermatologic History: Reports: None - Past Surgical History HEENT Surgical History: Reports: Tonsillectomy Cardiovascular Surgical History: Reports: Carotid Endarterectomy, Coronary Artery Bypass, Coronary Artery Stent, Pacer Respiratory Surgical History: Reports: None GI Surgical History: Reports: Cholecystectomy, EGD, Other (See Below) Other GI Surgeries/Procedures: splenectomy, ileostomy Male Surgical History: Reports: Nephrectomy, Renal Calculus Neurological Surgical History: Reports: None Musculoskeletal Surgical History: Reports: Arthroscopic Procedure Social & Family History - Family History Family Medical History: Noncontributory - Caffeine Use Caffeine Use: Reports: Soda - Living Situation & Occupation Living situation: Reports: , with Significant 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 No: Nasal Deformity, Nasal Ecchymosis Head: Atraumatic, Normocephalic Respiratory/Chest: No Respiratory Distress, Lungs Clear, Normal Breath Sounds Cardiovascular: Normal Peripheral Pulses, Regular Rate, Rhythm Neurological: Alert, Oriented Skin: Warm, Dry, Intact, Normal Color ED ENT PROCEDURES - Epistaxis Procedure Indication: Uncontrolled Recent anticoagulants/antiplatlets: Yes Uncontrolled HTN: No Recent septal/nasal surgery: No Site of bleeding: Right Nare Clearing of clots: Patient Blew Nose Ice pack to area: No Anterior Packing: Inflatable Nasal Tampon Complications: No Departure - Departure Time of Disposition: 20:05 Disposition: Home, Self-Care 01 Condition: Good Clinical Impression: Anterior epistaxis - Discharge Information *PRESCRIPTION DRUG MONITORING PROGRAM REVIEWED*: Not Applicable *COPY OF PRESCRIPTION DRUG MONITORING REPORT IN PATIENT MIGUEL: Not Applicable Instructions: Nosebleed, Adult Forms: ED Department Discharge Additional Instructions: 1. Leave packing in place until tomorrow 2. See your PCP for reassessment and possible removal tomorrow - Problem List Review Problem List Initiated/Reviewed/Updated: Yes - Assessment/Plan Assessment:: Epistaxis Plan: Rapid Rhino inserted without difficulty. Control of nosebleed successful. Discussed not to take out or mess with it. See PCP tomorrow for possible removal and reassessment.
[2018-08-07 20:07] VITALS: BP 138/74
== END 2018-08-07 20:23 | disposition home or self-care (01) ==
LOC: VM.ED 19:56
DX: R04.0 Epistaxis (principal); I13.2 Hypertensive heart and chronic kidney disease with heart failure and with stage 5 chronic kidney disease, or end stage renal disease; I50.9 Heart failure, unspecified; N18.9 Chronic kidney disease, unspecified; Z88.8 Allergy status to other drugs, medicaments and biological substances; Z88.1 Allergy status to other antibiotic agents; Z88.5 Allergy status to narcotic agent; Z79.899 Other long term (current) drug therapy
CPT/HCPCS: 30901; 99283; 99283-GF

== ENCOUNTER 2018-11-12 09:22 | Emergency (ER) | payer MEDICARE, OTHER ==
[2018-11-12 10:16] VITALS: BP 126/67; PULSE 77
--- NOTE | 2018-11-12 10:31 | EDM.PDOC ---
ED HPI GENERAL MEDICAL PROBLEM - General Chief Complaint: Skin Complaint Stated Complaint: LT WRIST Time Seen by Provider: 11/12/18 09:25 Source of Information: Reports: Patient History Limitations: Reports: No Limitations - History of Present Illness INITIAL COMMENTS - FREE TEXT/NARRATIVE: Pt. presents to ER with complaints of L wrist pain. Pt. states that he had an arterial line placed in the area a week ago for a surgical procedure (placement of Watchman device) and since that time, he developed edema and discomfort to the area. He states that the discomfort is located only in the wrist. Denies any fever or chills. He states that there is no streaking up his arm. Denies any numbness/tingling in the distal portion of the extremity. He is currently on Eliquis and plavix for a-fib/CAD. Onset Date: 11/12/18 Location: Reports: Upper Extremity, Left Quality: Reports: Ache Left Wrist Pain Score (Numeric/FACES): 3 - Related Data Allergies Allergy/AdvReac Type Severity Reaction Status Date / Time morphine Allergy Severe Other Verified 11/12/18 09:50 atorvastatin calcium Allergy Unknown Hives Verified 11/12/18 09:50 [From Lipitor] cephalexin monohydrate Allergy Unknown Cannot Verified 11/12/18 09:50 [From Keflex] Remember colesevelam HCl Allergy Unknown Cannot Verified 11/12/18 09:50 [From WelChol] Remember erythromycin base Allergy Unknown Cannot Verified 11/12/18 09:50 [Erythromycin Base] Remember gemfibrozil [From Lopid] Allergy Unknown Cannot Verified 11/12/18 09:50 Remember lisinopril Allergy Unknown Cannot Verified 11/12/18 09:50 Remember animal dander Allergy Sneezing Verified 11/12/18 09:50 midazolam HCl [From Versed] AdvReac Unknown Change Verified 11/12/18 09:50 Mental Status Home Meds: Home Meds Calcium Carbonate/Vitamin D3 [Calcium 600 + Vit D Tablet] 1 tab PO BID 04/05/13 [History] Cyanocobalamin (Vitamin B-12) [Vitamin B-12] 1,000 mcg PO DAILY 04/05/13 [ History] Penicillin V Potassium 250 mg PO DAILY 04/05/13 [History] Allopurinol [Zyloprim] 200 mg PO DAILY 11/08/16 [History] Citric Acid/Sodium Citrate [Bicitra Solution] 60 ml PO BID 12/22/16 [History] Ferrous Sulfate 325 mg PO BID 12/22/16 [History] Isosorbide Mononitrate [Isosorbide Mononitrate ER] 30 mg PO DAILY 12/22/16 [ History] Metoprolol Succinate [Toprol XL] 25 mg PO DAILY 12/22/16 [History] Rosuvastatin [Crestor] 10 mg PO DAILY 01/27/17 [History] Ascorbic Acid [Vitamin C] 250 mg PO BID 10/17/17 [History] Calcitriol [Rocaltrol] 0.25 mcg PO Q48H 10/17/17 [History] Torsemide [Demadex] 20 mg PO Q48H 10/17/17 [History] Alum Hydrox/Mag Hydrox/Simeth [Mag-Al Plus] 15 ml PO BEDTIME 03/26/18 [History] Tamsulosin HCl [Flomax] 0.4 mg PO DAILY 03/26/18 [History] D5 1/2 NS w/ 20 mEq/L KCl [KCl 20 mEq in D5W-1/2 NS] 100 ml IV ASDIRECTED bag 03/27/18 [Rx] HYDROmorphone [Dilaudid] 0.4 mg IVPUSH Q3H PRN syringe 03/27/18 [Rx] Ondansetron [Zofran] 4 mg IVPUSH Q8H PRN vial 03/27/18 [Rx] Past Medical History HEENT History: Reports: Cataract, Hard of Hearing, Impaired Vision, Other (See Below) Other HEENT History: hypermetropia, presbyopia, vitreous degeneration Cardiovascular History: Reports: Bypass, CAD, Heart Failure, High Cholesterol, Hypertension, [place], Pacemaker, Stents, Other (See Below) Other Cardiovascular History: CABG and stents, heart block Respiratory History: Reports: Other (See Below) Other Respiratory History: WU, tried CPAP and was unable to use Gastrointestinal History: Reports: GERD, GI Bleed, Other (See Below) Other Gastrointestinal History: chrohns, disease, ostomy in place, primary sclerosing cholangitis Genitourinary History: Reports: Chronic Renal Insuffiency, Renal Calculus, Other (See Below) Other Genitourinary History: hx of kidney removal, proteinuria Musculoskeletal History: Reports: Arthritis, Gout, Osteoporosis, Other (See Below) Other Musculoskeletal History: hx distal ulnar fx, chondromalacia of patella, pelvic/thigh pain Neurological History: Reports: Other (See Below) Other Neuro History: periodic limb movement disorder Endocrine/Metabolic History: Reports: Vitamin D Deficiency, Other (See Below) Other Endocrine/Metabolic History: hypogonadism, hypertriglyceridemia Hematologic History: Reports: Anemia, Iron Deficiency, Other (See Below) Other Hematologic History: hx of low platelets, red blood cell antibody positive , autoimmunie hemolytic anemia Immunologic History: 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 Oncologic (Cancer) History: Reports: Basal Cell Carcinoma, Other (See Below) Other Oncologic History: myelodysplastic syndrome Dermatologic History: Reports: None - Past Surgical History HEENT Surgical History: Reports: Tonsillectomy Cardiovascular Surgical History: Reports: Carotid Endarterectomy, Coronary Artery Bypass, Coronary Artery Stent, Pacer, Other (See Below) Other Cardiovascular Surgeries/Procedures: watchman Respiratory Surgical History: Reports: None GI Surgical History: Reports: Cholecystectomy, EGD, Other (See Below) Other GI Surgeries/Procedures: splenectomy, ileostomy Male Surgical History: Reports: Nephrectomy, Renal Calculus Neurological Surgical History: Reports: None Musculoskeletal Surgical History: Reports: Arthroscopic Procedure Social & Family History - Family History Family Medical History: Noncontributory - Tobacco Use Smoking Status *Q: Never Smoker - Caffeine Use Caffeine Use: Reports: Soda - Living Situation & Occupation Living situation: Reports: , with Significant 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 2.5 cm in diameter area of edema, mild discoloration and pain to L wrist in area of arterial line placement. No significant redness. No discharge. No streaking up the arm.) Course - Vital Signs Last Recorded V/S: Last Vital Signs Temp 36.6 C 11/12/18 09:25 Pulse 77 11/12/18 09:25 Resp 16 11/12/18 09:25 BP 126/67 11/12/18 09:25 Pulse Ox 98 11/12/18 09:25 Departure - Departure Time of Disposition: 10:32 Disposition: Home, Self-Care 01 Condition: Good Clinical Impression: Phlebitis - Discharge Information Instructions: Phlebitis, [id number] Referrals: Cecily Bonner, [Primary Care Provider] - Additional Instructions: Continue with current medications. This appears to be superficial phlebitis. There does not appear to be any active infection in the area. Your temp is also normal. Apply warm packs to the area several times throughout the day. This will improve the healing process in the area. Follow-up in clinic in 10-14 days if not gradually improving. - Assessment/Plan Plan: Continue with current medications. This appears to be superficial phlebitis. There does not appear to be any active infection in the area. Your temp is also normal. Apply warm packs to the area several times throughout the day. This will improve the healing process in the area. Follow-up in clinic in 10-14 days if not gradually improving.
== END 2018-11-12 09:45 | disposition home or self-care (01) ==
LOC: VM.ED 09:22
DX: I80.8 Phlebitis and thrombophlebitis of other sites (principal); I25.10 Atherosclerotic heart disease of native coronary artery without angina pectoris; I13.0 Hypertensive heart and chronic kidney disease with heart failure and stage 1 through stage 4 chronic kidney disease, or unspecified chronic kidney disease; I50.9 Heart failure, unspecified; N18.9 Chronic kidney disease, unspecified; Z95.5 Presence of coronary angioplasty implant and graft; Z95.1 Presence of aortocoronary bypass graft; Z88.5 Allergy status to narcotic agent; Z88.8 Allergy status to other drugs, medicaments and biological substances; Z88.1 Allergy status to other antibiotic agents; Z79.899 Other long term (current) drug therapy
CPT/HCPCS: 99282; 99284-GF

== ENCOUNTER 2019-07-05 08:09 | Emergency (ER) | payer MEDICARE, OTHER ==
[2019-07-05] MEDS ORDERED: diphenhydrAMINE 50 MG/ML SDV IVPUSH ONE (08:36)
[2019-07-05] MEDS ORDERED: Lactated Ringers 1,000 ML IV ONE (08:36)
[2019-07-05] MEDS ORDERED: Ondansetron 4 MG/2 ML SDV IV ONE (08:36)
[2019-07-05] MEDS ORDERED: Sodium Chloride 0.9% 10 ML Syringe FLUSH PRN (08:36)
--- NOTE | 2019-07-05 09:12 | EDM.PDOC ---
ED HPI GENERAL MEDICAL PROBLEM - General Chief Complaint: Gastrointestinal Problem Stated Complaint: ER Time Seen by Provider: 07/05/19 08:21 Source of Information: Reports: Patient History Limitations: Reports: No Limitations - History of Present Illness INITIAL COMMENTS - FREE TEXT/NARRATIVE: Patient comes emergency department today from home with concerns of nausea and vomiting and increased output from his ileostomy. This patient yesterday fact felt quite well until he went to dinner when he had some shrimp and started to have quite a bit of increased output from his ileostomy. He had to change and empty his bag multiple times last night consistent with diarrhea he reports. He had no abdominal pain or cramping at that time. This morning when he woke up he noticed that he had continued increased output from his ileostomy and now is nauseous and has been dry heaving most of the morning. He continues not to have any abdominal pain. No chest pain or shortness of breath or difficulty breathing. No fever no chills. 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 - Related Data Allergies Allergy/AdvReac Type Severity Reaction Status Date / Time morphine Allergy Severe Other Verified 07/05/19 09:11 atorvastatin calcium Allergy Unknown Hives Verified 07/05/19 09:11 [From Lipitor] cephalexin monohydrate Allergy Unknown Cannot Verified 07/05/19 09:11 [From Keflex] Remember colesevelam HCl Allergy Unknown Cannot Verified 07/05/19 09:11 [From WelChol] Remember erythromycin base Allergy Unknown Cannot Verified 07/05/19 09:11 [Erythromycin Base] Remember gemfibrozil [From Lopid] Allergy Unknown Cannot Verified 07/05/19 09:11 Remember lisinopril Allergy Unknown Cannot Verified 07/05/19 09:11 Remember animal dander Allergy Sneezing Verified 07/05/19 09:11 midazolam HCl [From Versed] AdvReac Unknown Change Verified 07/05/19 09:11 Mental Status Home Meds: Home Meds Calcium Carbonate/Vitamin D3 [Calcium 600 + Vit D Tablet] 1 tab PO BID 04/05/13 [History] Cyanocobalamin (Vitamin B-12) [Vitamin B-12] 2,000 mcg PO DAILY 04/05/13 [ History] Penicillin V Potassium 250 mg PO DAILY 04/05/13 [History] Allopurinol [Zyloprim] 100 mg PO DAILY 11/08/16 [History] Citric Acid/Sodium Citrate [Bicitra Solution] 60 ml PO BID 12/22/16 [History] Ferrous Sulfate 325 mg PO BID 12/22/16 [History] Isosorbide Mononitrate [Isosorbide Mononitrate ER] 30 mg PO DAILY 12/22/16 [ History] Metoprolol Succinate [Toprol XL] 25 mg PO DAILY 12/22/16 [History] Rosuvastatin [Crestor] 10 mg PO DAILY 01/27/17 [History] Ascorbic Acid [Vitamin C] 250 mg PO BID 10/17/17 [History] Torsemide [Demadex] 10 mg PO DAILY 10/17/17 [History] Alum Hydrox/Mag Hydrox/Simeth [Mag-Al Plus] 15 ml PO TID 03/26/18 [History] Acetaminophen/Diphenhydramine [Tylenol Pm Ex-Strength Caplet] 2 each PO BEDTIME 07/05/19 [History] Aspirin 81 mg PO DAILY 07/05/19 [History] Fluticasone Propionate [Flonase] 16 gm NS BID 07/05/19 [History] Glucosam/Chond/Collagen/Hyalur [Glucosamine Chondroitin] 1 each PO BID 07/05/19 [History] Multivitamin [Multivitamins] 1 each PO DAILY 07/05/19 [History] Nitroglycerin [Nitrostat] 0.4 mg SL ASDIRECTED PRN 07/05/19 [History] Pantoprazole Sodium [Protonix] 40 mg PO DAILY 07/05/19 [History] Potassium Chloride [Klor-Con M20] 20 meq PO BID 07/05/19 [History] Past Medical History HEENT History: Reports: Cataract, Hard of Hearing, Impaired Vision, Other (See Below) Other HEENT History: hypermetropia, presbyopia, vitreous degeneration Cardiovascular History: Reports: Bypass, CAD, Heart Failure, High Cholesterol, Hypertension, ID, Pacemaker, Stents, Other (See Below) Other Cardiovascular History: CABG and stents, heart block Respiratory History: Reports: Other (See Below) Other Respiratory History: WU, tried CPAP and was unable to use Gastrointestinal History: Reports: GERD, GI Bleed, Other (See Below) Other Gastrointestinal History: chrohns, disease, ostomy in place, primary sclerosing cholangitis Genitourinary History: Reports: Chronic Renal Insuffiency, Renal Calculus, Other (See Below) Other Genitourinary History: hx of kidney removal, proteinuria Musculoskeletal History: Reports: Arthritis, Gout, Osteoporosis, Other (See Below) Other Musculoskeletal History: hx distal ulnar fx, chondromalacia of patella, pelvic/thigh pain Neurological History: Reports: Other (See Below) Other Neuro History: periodic limb movement disorder Endocrine/Metabolic History: Reports: Vitamin D Deficiency, Other (See Below) Other Endocrine/Metabolic History: hypogonadism, hypertriglyceridemia Hematologic History: Reports: Anemia, Iron Deficiency, Other (See Below) Other Hematologic History: hx of low platelets, red blood cell antibody positive , autoimmunie hemolytic anemia Immunologic History: 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 Oncologic (Cancer) History: Reports: Basal Cell Carcinoma, Other (See Below) Other Oncologic History: myelodysplastic syndrome Dermatologic History: Reports: None - Past Surgical History HEENT Surgical History: Reports: Tonsillectomy Cardiovascular Surgical History: Reports: Carotid Endarterectomy, Coronary Artery Bypass, Coronary Artery Stent, Pacer, Other (See Below) Other Cardiovascular Surgeries/Procedures: watchman Respiratory Surgical History: Reports: None GI Surgical History: Reports: Cholecystectomy, EGD, Other (See Below) Other GI Surgeries/Procedures: splenectomy, ileostomy Male Surgical History: Reports: Nephrectomy, Renal Calculus Neurological Surgical History: Reports: None Musculoskeletal Surgical History: Reports: Arthroscopic Procedure Social & Family History - Family History Family Medical History: Noncontributory - Tobacco Use Smoking Status *Q: Never Smoker - Caffeine Use Caffeine Use: Reports: Soda - Living Situation & Occupation Living situation: Reports: , with Significant Other Occupation: Employed (owns his own business) ED ROS GENERAL - Review of Systems Review Of Systems: Comprehensive ROS is negative, except as noted in HPI. ED EXAM, GI/ABD - Physical Exam Exam: See Below Text/Narrative:: He is actively dry heaving and retching when I am doing my initial HPI. Exam Limited By: No Limitations General Appearance: Alert, WD/WN Eyes: Bilateral: EOMI Ears: Normal External Exam, Normal Canal Nose: Normal Inspection Throat/Mouth: No: Normal Inspection (Normal inspection other than oral mucosa is quite dry.) Head: Atraumatic, Normocephalic Neck: Normal Inspection, Supple Respiratory/Chest: No Respiratory Distress, Lungs Clear, Normal Breath Sounds, No Accessory Muscle Use, Chest Non-Tender Cardiovascular: Normal Peripheral Pulses, Regular Rate, Rhythm GI/Abdominal Exam: Soft, Non-Tender, No Distention, Abnormal Bowel Sounds ( Quite decreased bowel sounds), Other (There is an ileostomy in the right upper medial quadrant that is putting out very thin output for an ileostomy at this site.) Back Exam: Normal Inspection. No: CVA Tenderness (L), CVA Tenderness (R) Extremities: Normal Inspection, Normal Range of Motion, No Pedal Edema Neurological: Alert, Oriented, Normal Cognition, No Motor/Sensory Deficits Psychiatric: Normal Affect, Normal Mood Skin Exam: Dry, Intact, Normal Color, Cool Course - Vital Signs Last Recorded V/S: Last Vital Signs Temp 36.4 C 07/05/19 13:13 Pulse 60 07/05/19 13:13 Resp 12 07/05/19 13:13 BP 137/64 07/05/19 13:13 Pulse Ox 100 07/05/19 13:13 - Orders/Labs/Meds Orders: Active Orders 24 hr Category Date Time Status Peripheral IV Insertion Adult [OM.PC] Stat Oth 07/05/19 08:35 Ordered Labs: Laboratory Tests 07/05/19 07/05/19 07/05/19 Range/Units 08:53 08:53 08:53 WBC 5.3 (4.0-10.0) x10^3/uL RBC 3.87 L (4.5-6.0) x10^6/uL Hgb 12.8 L (14.0-18.0) g/dL Hct 40.8 (40.0-52.0) % MCV 105.4 H D (78.0-93.0) fL MCH 33.1 H (26.0-32.0) pg MCHC 31.4 L (32.0-36.0) g/dL RDW Coeff of Diana 13.1 (10.0-15.0) % Plt Count 60 L (130-400) x10^3/uL Add Manual Diff Yes Neutrophils % (Manual) 57 (50-80) % Lymphocytes % (Manual) 23 L (25-50) % Monocytes % (Manual) 13 H (2-11) % Eosinophils % (Manual) 7 H (0-4) % Poikilocytosis Occasional Anisocytosis 1+ slight H Sodium 142 (136-145) mmol/L Potassium 3.8 (3.5-5.1) mmol/L Chloride 107 (98-107) mmol/L Carbon Dioxide 24 (21-32) mmol/L Anion Gap 14.8 (10-20) mmol/L BUN 66 H (7-18) mg/dL Creatinine 2.5 H (0.70-1.30) mg/dL Est Cr Clr Drug Dosing TNP Estimated GFR (MDRD) 25 Glucose 107 H (74-106) mg/dL Lactic Acid 0.8 (0.4-2.0) mmol/L Calcium 8.5 (8.5-10.1) mg/dL Corrected Calcium 9.14 (8.5-10.1) mg/dL Total Bilirubin 0.7 (0.2-1.0) mg/dL AST 41 H (15-37) U/L ALT 47 (16-63) U/L Alkaline Phosphatase 178 H (46-116) U/L C-Reactive Protein 0.3 (<=0.9) mg/dL Total Protein 6.9 (6.4-8.2) g/dL Albumin 3.2 L (3.4-5.0) g/dL Globulin 3.7 Albumin/Globulin Ratio 0.86 Meds: Medications Discontinued Medications Generic Name Dose Route Start Last Admin Trade Name Freq PRN Reason Stop Dose Admin Diphenhydramine HCl 12.5 mg 07/05/19 08:36 07/05/19 08:47 Benadryl IVPUSH 07/05/19 08:37 12.5 mg ONETIME ONE Administration Lactated Ringer's 1,000 mls @ 999 mls/hr 07/05/19 08:36 07/05/19 08:44 Ringers, Lactated IV 07/05/19 09:36 999 mls/hr ONETIME ONE Administration Ondansetron HCl 4 mg 07/05/19 08:36 07/05/19 08:49 Zofran IV 07/05/19 08:37 4 mg ONETIME ONE Administration Ondansetron HCl 1 packet 07/05/19 18:05 07/05/19 18:15 Take Home: Ondansetron Odt 4 Mg, 2 Tab Pack PO 07/05/19 18:06 1 packet ONETIME ONE Administration Prochlorperazine Edisylate 5 mg 07/05/19 11:25 07/05/19 11:30 Compazine IV 07/05/19 11:26 5 mg ONETIME ONE Administration Sodium Chloride 10 ml 07/05/19 08:36 Saline Flush FLUSH ASDIRECTED PRN Keep Vein Open - Radiology Interpretation Free Text/Narrative:: Flat and upright x-ray of the abdomen per radiology shows small bowel dilation suspicious for underlying bowel obstruction. Abdominal and pelvis CT with contrast may be helpful for further characterization. CT abdomen pelvis without contrast due to the chronic renal failure per radiology. Shows no evidence of small bowel obstruction. Small amount of ascites layering dependently in the pelvis. No abscess or evidence of viscus perforation. - Re-Assessments/Exams Free Text/Narrative Re-Assessment/Exam: 07/05/19 09:15 IV was established labs were drawn. LR 250 mill bolus and 125 an hour. 12.5 mg benadryl IV push and Zofran 4 mg IV push for nausea. 07/05/19 20:20 Following the above therapy the patient continued to have some retching. He was given Compazine IV as well with resolution of his retching and vomiting. His labs are pretty good for this rather comorbid elderly patient. His creatinine is 2.5 which is minimally elevated from his baseline of 2-2.1. Potassium was 3.8 sodium 142. Rest of his labs are pretty unremarkable. We continued gentle IV hydration in the emergency department over the next multiple hours. He slept pretty much most of the time. I did review his CT results as well as the laboratory findings with the patient. After he awoke from his pretty good afternoon nap the patient had resolution of his nausea vomiting and had decreased output from his ileostomy. He was able to tolerate a clear liquid diet and he feels much better. He had no weakness dizziness lightheadedness. I am unsure if this is caused by either some type of viral irritation and/or food source. He is much improved at this time. We will send him home with some Zofran as well as Phenergan and he is well aware with his only one kidney that he needs to be very diligent on hydration especially electrolyte containing material such as Gatorade and or Powerade. If he continues to have any problems especially increased output from his ileostomy or unable to can take good oral intake he needs to recheck to prevent further worsening symptomology. He is comfortable with this plan his questions are answered. Departure - Departure Time of Disposition: 17:57 Disposition: Home, Self-Care 01 Clinical Impression: Nausea vomiting and diarrhea, Mild dehydration - Discharge Information *PRESCRIPTION DRUG MONITORING PROGRAM REVIEWED*: Not Applicable *COPY OF PRESCRIPTION DRUG MONITORING REPORT IN PATIENT MIGUEL: Not Applicable Instructions: Nausea and Vomiting, Adult, [id number], Dehydration, Adult, [id number], Diarrhea, Adult, [id number] Referrals: Cecily Bonner, [Primary Care Provider] - Forms: ED Department Discharge Additional Instructions: Slowly push fluids as much as possible. Especially water, Gatorade and or Powerade for electrolytes or other electrolyte containing fluids. No dairy products until nausea vomiting diarrhea free for 48 hrs. Diet, slowly advance from clear liquids as tolerated. Make it simple. Nothing fatty or spicy and high calorie if able. Ramen Noodles are great high calorie and simple foods. If nausea vomiting return. Stop all oral intake. Take your medication for nausea and vomiting wait until you have improvement of the nausea and vomiting until you start again with clear liquids and then once again slowly advance your diet. BRATY diet, Bananas rice applesauce toast and yogurt with live cultures to start your solid diet out and advance as tolerated. If nausea vomiting develops, Zofran starter pack from the ED, 1 tablet every 6 hrs as needed for nausea vomiting. #2 sent home from the ED and RX given to the patient as well. If not controlled with the Zofran, Phenergan 1 tablet every 6 hrs (can be taken with the Zofran) as needed for nausea and vomiting. Caution sedation. RX given to the patient #6. Return to the ED if new or worsening symptoms. Recheck with primary care provider in the next 3-5 days if not improving sooner if worse. Sepsis Event Note - Evaluation Sepsis Screening Result: No Definite Risk - Focused Exam Vital Signs: Vital Signs Temp Pulse Resp BP Pulse Ox 07/05/19 13:13 36.4 C 60 12 137/64 100 07/05/19 10:02 36.3 C 78 14 141/85 H 98 Date Exam was Performed: 07/05/19 Time Exam was Performed: 20:18 - My Orders Last 24 Hours: My Active Orders 07/05/19 08:35 Peripheral IV Insertion Adult [OM.PC] Stat - Assessment/Plan Last 24 Hours: My Active Orders 07/05/19 08:35 Peripheral IV Insertion Adult [OM.PC] Stat Assessment:: Nausea vomiting diarrhea Mild dehydration CKD Plan: Slowly push fluids as much as possible. Especially water, Gatorade and or Powerade for electrolytes or other electrolyte containing fluids. No dairy products until nausea vomiting diarrhea free for 48 hrs. Diet, slowly advance from clear liquids as tolerated. Make it simple. Nothing fatty or spicy and high calorie if able. Ramen Noodles are great high calorie and simple foods. If nausea vomiting return. Stop all oral intake. Take your medication for nausea and vomiting wait until you have improvement of the nausea and vomiting until you start again with clear liquids and then once again slowly advance your diet. BRATY diet, Bananas rice applesauce toast and yogurt with live cultures to start your solid diet out and advance as tolerated. If nausea vomiting develops, Zofran starter pack from the ED, 1 tablet every 6 hrs as needed for nausea vomiting. #2 sent home from the ED and RX given to the patient as well. If not controlled with the Zofran, Phenergan 1 tablet every 6 hrs (can be taken with the Zofran) as needed for nausea and vomiting. Caution sedation. RX given to the patient #6. Return to the ED if new or worsening symptoms. Recheck with primary care provider in the next 3-5 days if not improving sooner if worse.
[2019-07-05 09:35] LABS: CHLORIDE,CL 107 mmol/L (98-107); SODIUM,NA 142 mmol/L (136-145)
[2019-07-05 09:36] LABS: ANION GAP 14.8 mmol/L (10-20)
--- NOTE | 2019-07-05 11:02 | CR ---
[id number] RAD/RAD Abd Flat and Upright 2V EXAM: RAD Abd Flat and Upright 2V INDICATION: ILEOSTOMY NAUSEA VOMITING QUESTIONABLE OBSTRUCTION. COMPARISON: March 27, 2018. DISCUSSION: The small bowel is dilated to about 15 mm suggesting bowel obstruction. No pneumatosis or free air is identified. Cardiomegaly. Pacemaker leads RA and RV. Sternotomy multiple surgical clips scattered throughout the abdomen and pelvis. IMPRESSION: 1. Small bowel dilation suspicious for underlying bowel obstruction. Abdomen and pelvis CT with contrast may be useful for further characterization. Neto Gregory MD 07/05/19 1100 Thank you for allowing us to participate in the care of your patient.
[2019-07-05] MEDS ORDERED: Prochlorperazine 10 MG/2 ML SDV IV ONE (11:25)
--- NOTE | 2019-07-05 12:48 | CT ---
[id number] CT/CT Abdomen Pelvis WO IV EXAM: CT Abdomen Pelvis WO IV CLINICAL DATA: QUESTION SHORT BOWEL OBSTRUCTION, HISTORY OF COMPARISON STUDY: March 25, 2018. FINDINGS: Small right-sided pleural effusion. Groundglass parenchymal opacification in the right lung base adjacent to the effusion, nonspecific. There is likely a trace left pleural effusion. Numerous masses of varying size and density throughout the left kidney. Some of these are consistent with simple cysts. Others demonstrate density higher than that of fluid. Findings were seen previously in 2018 and are similar. No left-sided hydronephrosis. Right kidney has been resected. Scarring in the nephrectomy bed. Small amount of free fluid layering dependently in the pelvis. No abscess. No pneumoperitoneum or pneumatosis. Right lower quadrant ostomy. No radiographic evidence of a small bowel obstruction. Colon has been resected. IMPRESSION: No evidence of small bowel obstruction. Small amount of ascites layering dependently in the pelvis. No abscess or evidence of viscus perforation. Other findings are described above. Christopher Lemus MD 07/05/19 [id number] Thank you for allowing us to participate in the care of your patient.
[2019-07-05 13:19] VITALS: BP 137/64; PULSE 60
[2019-07-05] MEDS ORDERED: Take Home: Ondansetron 4 MG Tab.DIS, 2 Tab Pack PO ONE (18:05)
== END 2019-07-05 18:18 | disposition home or self-care (01) ==
LOC: VM.ED 08:09
DX: E86.0 Dehydration (principal); R11.2 Nausea with vomiting, unspecified; R19.7 Diarrhea, unspecified; I25.10 Atherosclerotic heart disease of native coronary artery without angina pectoris; I11.0 Hypertensive heart disease with heart failure; I50.9 Heart failure, unspecified; M10.9 Gout, unspecified; Z95.5 Presence of coronary angioplasty implant and graft; Z88.1 Allergy status to other antibiotic agents; Z91.09 Other allergy status, other than to drugs and biological substances; Z88.5 Allergy status to narcotic agent; Z79.899 Other long term (current) drug therapy; K21.9 Gastro-esophageal reflux disease without esophagitis
CPT/HCPCS: 36415; 74019; 74176; 80053; 83605; 85025; 86140; 96361; 96374; 96375; 99284; A9270; J0780; J1200; J2405; J7120